=== PATIENT | female | born 1940 | race Caucasian/White ===

== ENCOUNTER 2016-07-01 07:32 | Day surgery (SDC) | payer OTHER ==
[2016-05-21 17:23] VITALS: BMI 29.7
[2016-07-01] MEDS: AK-DILATE 10% OPTH SOL OP PRN ×3 (08:10→08:20)
[2016-07-01] MEDS: CYCLOGYL 2% OPTH OP PRN ×3 (08:10→08:20)
[2016-07-01] MEDS: TETRACAINE 0.5% UNIT-DOSE OP PRN ×3 (08:10→08:40)
[2016-07-01] MEDS: OCUFEN 0.03% OPTH SOL OP PRN ×3 (08:10→08:40)
[2016-07-01] MEDS ORDERED: SUBLIMAZE ONE (09:00)
[2016-07-01] MEDS ORDERED: VERSED ONE (09:00)
[2016-07-01] MEDS ORDERED: DIPRIVAN 20 ML VIAL IVP ONE (09:00)
[2016-07-01] MEDS ORDERED: EPINEPHRINE 1:1,000 AMP IR ONE (09:15)
[2016-07-01] MEDS ORDERED: BETADINE OPTH PREP OP ONE (09:15)
[2016-07-01] MEDS ORDERED: LIDOCAINE 1 % AMP 2 ML (SUTURES) INJ ONE (09:18)
[2016-07-01] MEDS ORDERED: TIMOPTIC 0.5% OPTH OP ONE (09:39)
[2016-07-01] MEDS ORDERED: DIAMOX PO ONE (11:00)
[2016-07-01] MEDS ORDERED: DIAMOX ONE (11:00)
[2016-07-01 11:06] VITALS: BP 160/84; TEMP 96
--- NOTE | 2016-07-02 09:21 | OP ---
PREOPERATIVE DIAGNOSIS: ADVANCED SENILE CATARACT LEFT EYE, MIOTIC PUPIL COMBATIVE. POSTOPERATIVE DIAGNOSIS: SAME. OPERATION PHACOEMULSIFICATION ASPIRATION OF CATARACT LEFT EYE. PLACEMENT OF POSTERIOR CHAMBER LENS. PHACO TIME 1:20.9 SECONDS AT 7.0% POWER. LENS MODEL KEELY [id number]. DIOPTER +19.5D. TECHNIQUE: CLEAR CORNEA. ANESTHESIA: TOPICAL ANESTHESIA W/ANESTHESIA MONITORING. OPERATIVE REPORT: Topical anesthesia consisting of Tetracaine was applied to the cornea and Xylocaine Methyl Paraben free of MFP was injected intracamerally into the anterior chamber. The patient was then brought into the operating room , prepped and draped in the usual ophthalmic manner. A lid speculum was placed and the operating microscope was used. A paracentesis was made at the 3 o' clock position. A clear corneal incision was made just out to the limbus. The anterior chamber was entered just inside the clear cornea. Viscoelastic was injected into the anterior chamber. A capsulotomy was performed with a bent # 27 gauge needle. Phacoemulsification was then performed in the posterior chamber. After completion of the phacoemulsification, residual cortical material was aspirated with the irrigation-aspiration system. The posterior capsule was polished. Viscoelastic was injected into the anterior and posterior chambers to inflate the capsular bag. Lens were placed via an Unfolder system and stabilized in the bag. Viscoelastic was removed from the anterior chamber. The wound was checked for any leakage. The four sponges were removed from the fornix. Topical antibiotic steroid and nonsteroidal drops were also applied to the cornea. A Green shield was applied. The patient left the operating room in good condition without any complications. INTRAOPERATIVE MEDICATIONS: Xylocaine Methyl Paraben Free MPF MTDD
== END 2016-07-01 11:02 | disposition home or self-care (01) ==
LOC: SURG 07:32
PROVIDERS: ATTEND Ophthalmology
DX: H25.012 Cortical age-related cataract, left eye (principal); H57.03 Miosis

== ENCOUNTER 2016-08-05 07:39 | Day surgery (SDC) ==
[2016-05-21 17:23] VITALS: BMI 29.7
[2016-08-05] MEDS ORDERED: DIAMOX ONE (08:20)
[2016-08-05] MEDS ORDERED: LIDOCAINE 1% 20 ML MDV ID ONE (08:20)
[2016-08-05] MEDS ORDERED: LIDOCAINE 1% 20 ML MDV ONE (08:20)
[2016-08-05] MEDS ORDERED: AK-DILATE 10% OPTH SOL OP ONE ×3 (08:30→08:40)
[2016-08-05] MEDS ORDERED: CYCLOGYL 2% OPTH OP ONE ×3 (08:30→08:40)
[2016-08-05] MEDS ORDERED: TETRACAINE 0.5% OPTH SOL OP ONE ×2 (08:45→09:00)
[2016-08-05] MEDS ORDERED: OCUFEN 0.03% OPTH SOL OP ONE ×2 (08:45→09:00)
[2016-08-05] MEDS ORDERED: VERSED ONE (09:30)
[2016-08-05] MEDS ORDERED: BETADINE OPTH PREP OP ONE (09:35)
[2016-08-05] MEDS ORDERED: EPINEPHRINE 1:1,000 AMP IR ONE (09:35)
[2016-08-05] MEDS ORDERED: LIDOCAINE 1 % AMP 5 ML (SUTURES) INJ ONE (09:40)
[2016-08-05] MEDS ORDERED: OCUFLOX 0.3% OPTH SOL OP ONE (09:54)
[2016-08-05] MEDS ORDERED: TIMOPTIC 0.5% OPTH OP ONE (09:54)
[2016-08-05] MEDS ORDERED: DIAMOX PO ONE (10:30)
[2016-08-05 10:49] VITALS: BP 147/71; TEMP 97.5
--- NOTE | 2016-08-06 10:24 | OP ---
PREOPERATIVE DIAGNOSIS: BRUNESCENT NUCLEAR SCLEROTIC CATARACT, POSTERIOR SUBCAPSULAR CATARACT, RIGHT EYE. POSTOPERATIVE DIAGNOSIS: SAME. OPERATION PHACOEMULSIFICATION ASPIRATION OF CATARACT RIGHT EYE. PLACEMENT OF POSTERIOR CHAMBER LENS. PHACO TIME 41.5 SECONDS AT 8% POWER. LENS MODEL TECMACRINA [id number]. DIOPTER +20.0D. TECHNIQUE: CLEAR CORNEA. ANESTHESIA: TOPICAL ANESTHESIA W/ANESTHESIA MONITORING. OPERATIVE REPORT: Topical anesthesia consisting of Tetracaine was applied to the cornea and Xylocaine Methyl Paraben free of MFP was injected intracamerally into the anterior chamber. The patient was then brought into the operating room , prepped and draped in the usual ophthalmic manner. A lid speculum was placed and the operating microscope was used. A paracentesis was made at the 3 o' clock position. A clear corneal incision was made just out to the limbus. The anterior chamber was entered just inside the clear cornea. Viscoelastic was injected into the anterior chamber. A capsulotomy was performed with a bent # 27 gauge needle. Phacoemulsification was then performed in the posterior chamber. After completion of the phacoemulsification, residual cortical material was aspirated with the irrigation-aspiration system. The posterior capsule was polished. Viscoelastic was injected into the anterior and posterior chambers to inflate the capsular bag. Lens were placed via an Unfolder system and stabilized in the bag. Viscoelastic was removed from the anterior chamber. The wound was checked for any leakage. The four sponges were removed from the fornix. Topical antibiotic steroid and nonsteroidal drops were also applied to the cornea. A Green shield was applied. The patient left the operating room in good condition without any complications. INTRAOPERATIVE MEDICATIONS: Xylocaine Methyl Paraben Free MPF MTDD
== END 2016-08-05 11:00 | disposition home or self-care (01) ==
LOC: SURG 07:39
PROVIDERS: ATTEND Ophthalmology
DX: H25.11 Age-related nuclear cataract, right eye (principal); H25.041 Posterior subcapsular polar age-related cataract, right eye; E11.9 Type 2 diabetes mellitus without complications
CPT/HCPCS: 82962

== ENCOUNTER 2017-03-26 11:00 | Inpatient (IN) | payer OTHER ==
[2017-03-26 12:00] LABS: ABG PCO2 31.5 mmHg (35-45); ABG PH 7.434 (7.35-7.45)
[2017-03-26 12:01] LABS: ABG BASE EXCESS -3 (-2.0-2.0); ABG HCO3 21.1 (22.0-26.0); ABG TCO2 22 (22.0-28.0)
[2017-03-26 12:07] LABS: BASOPHILS % (AUTO) 0.3 % (0.0-3.0); HEMATOCRIT 44.7 % (37.0-47.0); IMMATURE GRANULOCYTE % (AUTO) 0.7 % (0.0-5.0); LYMPHOCYTES # (AUTO) 2.5 K/uL (0.60-3.4); LYMPHOCYTES % (AUTO) 18.4 (10.0-50.0); MEAN CORPUSCULAR HEMOGLOBIN 28.5 pg (27.0-31.0); MEAN CORPUSCULAR HGB CONC 33.6 (31.8-35.4); MONOCYTES # (AUTO) 0.4 K/uL (0.4-2.0); MONOCYTES % (AUTO) 2.9 (0-10); NEUTROPHILS # (AUTO) 10.6 K/ul (2.0-6.9); NEUTROPHILS % (AUTO) 77.7; PLATELET COUNT 147 10^3/uL (140-440); RED BLOOD COUNT 5.26 10^6/ul (4.20-5.40); WHITE BLOOD COUNT 13.57 K/ul (4.6-10.2)
[2017-03-26 12:44] LABS: ALBUMIN 3.4 g/dL (3.4-5.0); ALBUMIN/GLOBULIN RATIO 0.89; ANION GAP 18.3; BILIRUBIN,TOTAL 1.36 mg/dL (0.00-1.20); BUN/CREATININE RATIO 14.7; CALCIUM 9.9 mg/dL (8.2-10.2); CREATININE 1.36 mg/dL (0.60-1.30); POTASSIUM 4.3 mmol/L (3.5-5.10); TOTAL PROTEIN 7.2 g/dL (5.8-8.1); TROPONIN I 0.098 ng/ml (0.0000-0.4000)
--- NOTE | 2017-03-26 12:50 | CT ---
EXAM: CT of the chest without contrast History: Cough. Comparison: CT abdomen pelvis 03/26/2017, chest radiograph 05/18/2016, chest CT 10/13/2015 Technique: Planar CT images through the chest were obtained without the administration of IV contras t Findings: Heart remains mildly enlarged. Coronary calcifications. No pericardial effusion. 3.9 cm ectatic ascending aorta. No pathologically enlarged thoracic lymph nodes. Calcified granulomas aga in seen within the thorax. Scattered areas of subsegmental atelectasis. No consolidated pneumonia. No pleural fluid and no pne umothorax. No suspicious lung masses or lung nodules. For details in the upper abdomen, please see dedicated CT abdomen pelvis done on the same day. The l iver is fatty. No acute osseous abnormalities. Sternotomy wires. Impression: 1. No evidence for pneumonia. 2. Mild cardiomegaly and coronary artery disease. 3. Fatty liver.
--- NOTE | 2017-03-26 12:52 | CT ---
EXAM: CT scan of the head without contrast HISTORY: Pain TECHNIQUE: Imaging of the head was performed without contrast. 5 mm thin axial images and coronal a nd sagittal images were provided for interpretation. Comparison CT scan of the head dated 05/21/2016. FINDINGS: There is stable appearance of the right transfrontal ventriculostomy catheter. There is s table prominence of the lateral ventricles. There is stable prominence of the temporal horns and pro minence of the third ventricle. The hooker-white interface appears normal. No acute hemorrhages are s een. There is stable appearance of a small focus of low density and probable encephalomalacia seen a long the anterior right temporal lobe. There is no mass effect. Patchy low density changes are seen within the supratentorial white matter. The paranasal sinuses and mastoid air cells are clear. The calvarium and extracranial soft tissues are normal. IMPRESSION: Stable appearance of the right transfrontal ventriculostomy catheter. Stable ventriculomegaly. No acute intracranial abnormalities are seen. Mild chronic small vessel ischemic changes seen within the supratentorial white matter.
--- NOTE | 2017-03-26 12:52 | CT ---
EXAM: CT Abdomen without contrast. CT Pelvis without contrast. HISTORY: Abdominal pain. COMPARISON: 10/13/2015. TECHNIQUE: Multiple axial images of the abdomen and pelvis were obtained without intravenous contras t. Images were reformatted in the coronal plane. FINDINGS: Please note that evaluation of the abdominal and pelvic structures is limited due to lack of intravenous contrast. There has been previous sternotomy. Heart is enlarged. No acute abnormality identified in the lung bases. Degenerative changes present in the spine. The liver is diffusely low density consistent with fatty infiltration. Gallbladder appears contracte d. Pancreas, spleen, and adrenal glands demonstrate normal contour. Nonobstructing left renal calcu li are present. Grossly stable exophytic left renal lesion on axial image 34, not well characterized . Correlation with ultrasound is recommended as previously noted. No ureteral or bladder calculi ar e seen. The bowel is normal in course and caliber without evidence for obstruction or inflammatory process. The appendix is normal. Colonic diverticulosis noted. Small fat-containing umbilical hernia is pres ent. Ventriculoperitoneal shunt catheter enters the right anterior abdomen with the tip in the pelvi s. Uterus demonstrates normal contour. Urinary bladder is unremarkable. No free fluid or free air identified. Extensive atherosclerotic calcifications present. Left common iliac artery stent noted. Since prior study, there has been no significant interval change. IMPRESSION: No acute abnormality of the abdomen or pelvis.
[2017-03-26 12:53] LABS: CREATINE KINASE MB 2.2 ng/ml (0.0-3.6)
[2017-03-26 13:29] LABS: BILIRUBIN,URINE Negative (NEGATIVE); KETONES,URINE 1+ (NEGATIVE); LEUKOCYTE ESTERASE ,URINE 1+ (NEGATIVE); NITRITE,URINE Positive (NEGATIVE); PH,URINE 5.5 (5-9); PROTEIN,URINE 3+ (NEGATIVE); URINE, BLOOD 2+ (NEGATIVE)
[2017-03-26 13:30] LABS: ADD URINE MICROSCOPIC YES
[2017-03-26 13:31] LABS: BACTERIA,URINE 2+ (NOT PRESENT)
[2017-03-26] MEDS ORDERED: VANCOMYCIN 1 GM in SODIUM CHLORIDE 250 ML IV STA (13:53)
[2017-03-26] MEDS ORDERED: DUONEB NEB PRN (13:55)
[2017-03-26] MEDS ORDERED: HUMULIN R SUBCUT STA (13:57)
--- NOTE | 2017-03-26 14:00 | ED.PDOC ---
General ED Provider: Dr. GABRIELLA CONCEPCION Chief Complaint: Altered Mental Status Stated Complaint: altered Time Seen by Physician: 11:00 Mode of Arrival: Ambulance Information Source: [facility], EMT Exam Limitations: No limitations Primary Care Provider: JOE OLIVAS Nursing and Triage Documentation Reviewed and Agree: Yes (no head injury arrived orientated x 3) Neurological Complaint Exam - Altered Mental Status Complaint/Exam Current Mental Status: Agitation Last Known Well: today Onset: Gradual Duration: resolved Symptoms Are: Resolved Timing: Intermittent Initial Severity: Mild Current Severity: None Eye Deviation Present: No Character: Reports: Agitation Aggravating: Reports: None Alleviating: Reports: Spontaneous resolution Associated Signs and Symptoms: Denies: Dizziness, Weakness, Headache, Fever, Illness, Nuchal rigidity, Seizure, Nausea, Vomiting, Recently depressed, Trauma Cardiac Risk Factors: Reports: Hypertension, Elevated lipids CVA Risk Factors: Reports: Hypertension Related Surgical History: Reports: None Carotid Bruit Present: No Glascow Coma Scale (see protocol): 15 Nystagmus Present: No Gag Reflex Present: Yes Meningeal Signs Positive: No Focal Weakness: Present: None Focal Sensory Loss: Present: None Gait: Unable [id number]: Normal Findings Babinski Sign: Negative Right, Negative Left Signs of Injury: Present: Normal findings Differential Diagnoses: Hypoxia, Intracranial Bleed, Metabolic Disorder, Hypoglycemia, TIA Review of Systems - Review Of Systems Constitutional: Reports: Malaise Eyes: Reports: No symptoms Ears, Nose, Mouth, Throat: Reports: No symptoms Respiratory: Reports: No symptoms Cardiac: Reports: No symptoms GI: Reports: No symptoms : Reports: No symptoms Musculoskeletal: Reports: No symptoms Skin: Reports: No symptoms Neurological: Reports: Cognitive dysfunction Endocrine: Reports: No symptoms Hematologic/Lymphatic: Reports: No symptoms All Other Systems: Reviewed and Negative Past Medical History - Past Medical History Previously Healthy: No Endocrine: Reports: DM 2 Cardiovascular: Reports: Hypertension Respiratory: Reports: None Hematological: Reports: None Gastrointestinal: Reports: GERD Genitourinary: Reports: None Neuro/Psych: Reports: None Musculoskeletal: Reports: None Cancer: Reports: Unknown Last Menstrual Period: NONE - Surgical History General Surgical History: Reports: Other ([employer] shunt), Unknown - Family History Family History: Reports: Unknown - Social History Smoking Status: Never smoker Hx Substance Use: No Alcohol Screening: None Physical Exam - Physical Exam Appearance: Well-appearing, No pain distress, Well-nourished Eyes: MILTON, EOMI, Conjunctiva clear ENT: Ears normal, Nose normal, Dry mucosa Respiratory: Airway patent, Breath sounds clear, Breath sounds equal, Respirations nonlabored Cardiovascular: RRR, Pulses normal, No rub, No murmur GI/: Soft, Nontender, No masses, Bowel sounds normal, No Organomegaly Musculoskeletal: Normal strength, ROM intact, No edema, No calf tenderness Skin: Warm, Dry, Normal color Neurological: Sensation intact, Motor intact, Reflexes intact, Cranial nerves intact, Alert, Oriented Psychiatric: Affect appropriate, Mood appropriate Interpretation - Radiology Interpretation Radiology Interpretation By: Radiologist Radiology Results: No acute changes Physician Notification - Case Discussed Physician Notified: pmd Time of Notification: 14:01 Admit To: Inpatient Critical Care Note - Critical Care Note Total Time (mins): 0 Course - Course Hematology/Chemistry: 03/26/17 11:59 03/26/17 11:59 Orders, Labs, Meds: Lab Review 03/26/17 03/26/17 03/26/17 11:50 11:59 11:59 WBC 13.57 H RBC 5.26 Hgb 15.0 Hct 44.7 MCV 85.0 MCH 28.5 MCHC 33.6 RDW Coeff of Cogn 13.8 Plt Count 147 Immature Gran % (Auto) 0.7 Neut % (Auto) 77.7 Lymph % (Auto) 18.4 Carson % (Auto) 2.9 Eos % (Auto) 0.0 Baso % (Auto) 0.3 Immature Gran # (Auto) 0.1 Neut # 10.6 H Lymph # 2.5 Carson # 0.4 Eos # 0.0 Baso # 0.0 Puncture Site L rad O2 Saturation 92.0 L ABG pH 7.434 ABG pCO2 31.5 L ABG pO2 60.0 L ABG HCO3 21.1 L ABG Total CO2 22 ABG Base Excess -3 L Jaswinder Test + FiO2 % 21.0 Sodium 138 Potassium 4.3 Chloride 104 Carbon Dioxide 20 L Anion Gap 18.3 BUN 20 H Creatinine 1.36 H Estimated GFR (MDRD) 38.00 BUN/Creatinine Ratio 14.70 Glucose 328 H Lactic Acid Calcium 9.9 Total Bilirubin 1.36 H AST 39 H ALT 45 Alkaline Phosphatase 72 Total Creatine Kinase 180 CK-MB (CK-2) 2.2 CK-MB (CK-2) % 1.97937 Troponin I 0.0980 Total Protein 7.2 Albumin 3.4 Globulin 3.8 Albumin/Globulin Ratio 0.89 Procalcitonin Urine Color Urine Clarity Urine pH Ur Specific Franklin Urine Protein Urine Glucose (UA) Urine Ketones Urine Blood Urine Nitrite Urine Bilirubin Urine Urobilinogen Ur Leukocyte Esterase Urine Microscopic WBC Ur Squamous Epith Cells Urine Bacteria 03/26/17 03/26/17 03/26/17 11:59 11:59 13:25 WBC RBC Hgb Hct MCV MCH MCHC RDW Coeff of Cong Plt Count Immature Gran % (Auto) Neut % (Auto) Lymph % (Auto) Carson % (Auto) Eos % (Auto) Baso % (Auto) Immature Gran # (Auto) Neut # Lymph # Carson # Eos # Baso # Puncture Site O2 Saturation ABG pH ABG pCO2 ABG pO2 ABG HCO3 ABG Total CO2 ABG Base Excess Jaswinder Test FiO2 % Sodium Potassium Chloride Carbon Dioxide Anion Gap BUN Creatinine Estimated GFR (MDRD) BUN/Creatinine Ratio Glucose Lactic Acid 26.1 H Calcium Total Bilirubin AST ALT Alkaline Phosphatase Total Creatine Kinase CK-MB (CK-2) CK-MB (CK-2) % Troponin I Total Protein Albumin Globulin Albumin/Globulin Ratio Procalcitonin 0.37 Urine Color Yellow Urine Clarity Cloudy Urine pH 5.5 Ur Specific Franklin 1.020 Urine Protein 3+ Urine Glucose (UA) 3+ H Urine Ketones 1+ Urine Blood 2+ Urine Nitrite Positive Urine Bilirubin Negative Urine Urobilinogen 1.0 Ur Leukocyte Esterase 1+ Urine Microscopic WBC Tntc Ur Squamous Epith Cells Not present Urine Bacteria 2+ Orders Category Date Time Status ADMIT PATIENT INPATIENT .TO [facility] (MONITORED BED) ADMISSION 03/26/17 13: 50 Ordered ABG DRAW REQUEST Stat CARDIO 03/26/17 11:28 Completed EKG-(ED ONLY) Stat CARDIO 03/26/17 11:27 Completed EKG-(IP & OP ONLY) DAILY CARDIO 03/27/17 06:00 Ordered EKG-(IP & OP ONLY) DAILY CARDIO 03/28/17 06:00 Ordered EKG-(IP & OP ONLY) DAILY CARDIO 03/29/17 06:00 Ordered ACTIVITY .Complete BR CARE 03/26/17 13:50 Ordered BLOOD GLUCOSE MONITORING ACCUCHECK Q6H CARE 03/26/17 13:50 Ordered GIVE HS SNACK 2100 CARE 03/26/17 13:52 Ordered INTAKE & OUTPUT Q8HR CARE 03/26/17 13:50 Ordered Neuro Check [NEUROLOGICAL CHECKS] Q6HR CARE 03/26/17 13:57 Ordered TELEMETRY MONITORING TELE CARE 03/26/17 13:51 Ordered VITAL SIGNS Q8HR CARE 03/26/17 13:50 Ordered ADA 1800 ROSALIA. DIET DIETARY 03/26/17 Lunch Ordered HS SNACK DIETARY 03/26/17 Dinner Ordered ABG Stat LAB 03/26/17 11:50 Completed BLOOD CULTURE (ED ONLY) Stat LAB 03/26/17 11:59 Received CBC W/ AUTO DIFF DAILY@0600 LAB 03/27/17 06:00 Ordered CBC W/ AUTO DIFF DAILY@0600 LAB 03/28/17 06:00 Ordered CBC W/ AUTO DIFF DAILY@0600 LAB 03/29/17 06:00 Ordered CBC W/ AUTO DIFF DAILY@0600 LAB 03/30/17 06:00 Ordered CBC W/ AUTO DIFF DAILY@0600 LAB 03/31/17 06:00 Ordered CBC W/ AUTO DIFF DAILY@0600 LAB 04/01/17 06:00 Ordered CBC W/ AUTO DIFF DAILY@0600 LAB 04/02/17 06:00 Ordered CBC W/ AUTO DIFF DAILY@0600 LAB 04/03/17 06:00 Ordered CBC W/ AUTO DIFF DAILY@0600 LAB 04/04/17 06:00 Ordered CBC W/ AUTO DIFF DAILY@0600 LAB 04/05/17 06:00 Ordered CBC W/ AUTO DIFF DAILY@0600 LAB 04/06/17 06:00 Ordered CBC W/ AUTO DIFF DAILY@0600 LAB 04/07/17 06:00 Ordered CBC W/ AUTO DIFF DAILY@0600 LAB 04/08/17 06:00 Ordered CBC W/ AUTO DIFF DAILY@0600 LAB 04/09/17 06:00 Ordered CBC W/ AUTO DIFF DAILY@0600 LAB 04/10/17 06:00 Ordered CBC W/ AUTO DIFF DAILY@0600 LAB 04/11/17 06:00 Ordered CBC W/ AUTO DIFF DAILY@0600 LAB 04/12/17 06:00 Ordered CBC W/ AUTO DIFF DAILY@0600 LAB 04/13/17 06:00 Ordered CBC W/ AUTO DIFF DAILY@0600 LAB 04/14/17 06:00 Ordered CBC W/ AUTO DIFF DAILY@0600 LAB 04/15/17 06:00 Ordered CBC W/ AUTO DIFF Stat LAB 03/26/17 11:59 Completed COMPREHENSIVE METABOLIC PANEL DAILY@0600 LAB 03/27/17 06:00 Ordered COMPREHENSIVE METABOLIC PANEL DAILY@0600 LAB 03/28/17 06:00 Ordered COMPREHENSIVE METABOLIC PANEL DAILY@0600 LAB 03/29/17 06:00 Ordered COMPREHENSIVE METABOLIC PANEL DAILY@0600 LAB 03/30/17 06:00 Ordered COMPREHENSIVE METABOLIC PANEL DAILY@0600 LAB 03/31/17 06:00 Ordered COMPREHENSIVE METABOLIC PANEL DAILY@0600 LAB 04/01/17 06:00 Ordered COMPREHENSIVE METABOLIC PANEL DAILY@0600 LAB 04/02/17 06:00 Ordered COMPREHENSIVE METABOLIC PANEL DAILY@0600 LAB 04/03/17 06:00 Ordered COMPREHENSIVE METABOLIC PANEL DAILY@0600 LAB 04/04/17 06:00 Ordered COMPREHENSIVE METABOLIC PANEL DAILY@0600 LAB 04/05/17 06:00 Ordered COMPREHENSIVE METABOLIC PANEL DAILY@0600 LAB 04/06/17 06:00 Ordered COMPREHENSIVE METABOLIC PANEL DAILY@0600 LAB 04/07/17 06:00 Ordered COMPREHENSIVE METABOLIC PANEL DAILY@0600 LAB 04/08/17 06:00 Ordered COMPREHENSIVE METABOLIC PANEL DAILY@0600 LAB 04/09/17 06:00 Ordered COMPREHENSIVE METABOLIC PANEL DAILY@06 LAB 04/10/17 06:00 Ordered COMPREHENSIVE METABOLIC PANEL DAILY@0600 LAB 04/11/17 06:00 Ordered COMPREHENSIVE METABOLIC PANEL DAILY@0600 LAB 04/12/17 06:00 Ordered COMPREHENSIVE METABOLIC PANEL DAILY@0600 LAB 04/13/17 06:00 Ordered COMPREHENSIVE METABOLIC PANEL DAILY@0600 LAB 04/14/17 06:00 Ordered COMPREHENSIVE METABOLIC PANEL DAILY@0600 LAB 04/15/17 06:00 Ordered COMPREHENSIVE METABOLIC PANEL Stat LAB 03/26/17 11:59 Completed CREATINE KINASE Q8H LAB 03/26/17 20:00 Ordered CREATINE KINASE Q8H LAB 03/27/17 04:00 Ordered CREATINE KINASE Stat LAB 03/26/17 11:59 Completed LACTIC ACID Stat LAB 03/26/17 11:59 Completed PROCALCITONIN Stat LAB 03/26/17 11:59 Completed TROPONIN I Q8H LAB 03/26/17 20:00 Ordered TROPONIN I Q8H LAB 03/27/17 04:00 Ordered TROPONIN I Stat LAB 03/26/17 11:59 Completed UA [URINALYSIS C & S IF INDICATED] Stat LAB 03/26/17 13:25 Completed URINE CULTURE Stat LAB 03/26/17 13:25 Received Aspirin [Aspirin Chewable] MEDS 03/27/17 08:00 Ordered 81 mg PO DAILYWM Atorvastatin Calcium [Lipitor] MEDS 03/26/17 21:00 Ordered 40 mg PO BEDTIME Ceftriaxone Sodium [Rocephin] 1 gm MEDS 03/27/17 09:00 Ordered 0.9 % Sodium Chloride [Sodium Chloride] 50 ml IV DAILY Gabapentin [Neurontin] MEDS 03/26/17 21:00 Ordered 300 mg PO BID Insulin Regular, Human [Humulin R] MEDS 03/26/17 13:57 Stat See Protocol SUBCUT ONCE STA Ipratropium/Albuterol Neb [Duoneb] MEDS 03/26/17 13:55 Ordered 1 vial NEB RTQ6H PRN Isosorbide Mononitrate [Imdur] MEDS 03/27/17 09:00 Ordered 30 mg PO DAILY Lisinopril [Zestril] MEDS 03/27/17 09:00 Ordered 10 mg PO DAILY Sodium Chloride 0.9% [Sodium Chloride] 1,000 ml MEDS 03/26/17 14:00 Ordered IV 75 mls/hr Vancomycin HCl [Vancomycin] 1 gm MEDS 03/26/17 13:53 Ordered 0.9 % Sodium Chloride [Sodium Chloride] [address] ABDOMEN/PELVIS WO CONTRAST Stat RADS 03/26/17 11:[address] CHEST W/O CONTRAST Stat RADS 03/26/17 11:[address] HEAD W/O CONTRAST Stat RADS 03/26/17 11:29 Completed Medications Generic Name Dose Route Start Last Admin Trade Name Freq PRN Reason Stop Dose Admin Albuterol/Ipratropium 1 vial 03/26/17 13:55 Duoneb NEB RTQ6H PRN Bronchospasm Aspirin 81 mg 03/27/17 08:00 Aspirin Chewable PO DAILYWM SURAJ Gabapentin 300 mg 03/26/17 21:00 Neurontin PO BID SURAJ Ceftriaxone Sodium 1 gm/ 50 mls @ 75 mls/hr 03/27/17 09:00 Sodium Chloride IV DAILY SURAJ Sodium Chloride 1,000 mls @ 75 mls/hr 03/26/17 14:00 Sodium Chloride IV .[id number] SURAJ Vancomycin HCl 1 gm/ Sodium 250 mls @ 250 mls/hr 03/26/17 13:53 Chloride IV 03/26/17 14:52 ONCE STA Isosorbide Mononitrate 30 mg 03/27/17 09:00 Imdur PO DAILY [facility] Lisinopril 10 mg 03/27/17 09:00 Zestril PO DAILY [facility] Non-Formulary Medication 40 mg 03/26/17 21:00 Atorvastatin Calcium [Lipitor] PO BEDTIME SURAJ Discontinued Medications Generic Name Dose Route Start Last Admin Trade Name Freq PRN Reason Stop Dose Admin Insulin Human Regular 0 unit 03/26/17 13:57 Humulin R SUBCUT 03/26/17 13:58 ONCE STA Protocol Vital Signs: Temp Pulse Resp BP Pulse Ox 03/26/17 11:01 97.9 F 104 H 20 138/84 93 L Departure - Departure Time of Disposition: 14:01 (pmd saw pt in ED STATED TO ADMITT ) Disposition: ADMITTED INPATIENT Discharge Problem: Altered mental status, Altered mental state, Dehydration UTI (urinary tract infection) Qualifiers: Urinary tract infection type: site unspecified Instructions: Altered Mental Status (ED) Condition: Good Pt referred to PMD for follow-up: Yes Allergies/Adverse Reactions: Allergies Penicillins Adverse Reaction (Verified 03/26/17 11:20) Home Medications: Ambulatory Orders Acetaminophen 650 mg PO Q4H PRN 10/29/14 Acetaminophen [Tylenol] 325 mg PO Q6H PRN 10/29/14 Aspirin [Aspirin Chewable] 81 mg PO DAILYWM 10/29/14 Cetirizine HCl [Zyrtec] 10 mg PO DAILY 10/29/14 Gabapentin [Neurontin] 300 mg PO BID 10/29/14 Hydrocodone/Acetaminophen [Hydrocodon-Acetaminophen 5-325] 1 each PO TID Insulin Aspart [Novolog Insulin] 0 unit SUBCUT BID 10/29/14 Insulin Glargine,Hum.rec.anlog [Lantus] 42 unit SUBCUT BEDTIME 10/29/14 Isosorbide Mononitrate [Imdur] 30 mg PO DAILY 10/29/14 Lisinopril [Zestril] 10 mg PO DAILY 10/29/14 [place]-3 Fatty Acids/Fish Oil [Fish Oil 1,000 mg Softgel] 1 each PO TID 10/29/14 Omeprazole [Prilosec] 20 mg PO QDAC 10/29/14 Pentoxifylline [Trental] 400 mg PO BID 10/29/14 Ropinirole HCl [Requip] 1 mg PO BEDTIME 10/29/14 Metformin HCl [Metformin HCl ER] 500 mg PO BID 08/08/15 Atorvastatin Calcium [Lipitor] 40 mg PO BEDTIME 10/13/15 Magnesium Hydroxide [Milk of Magnesia] 30 ml PO DAILY PRN 05/21/16 Fenofibrate [Triglide] 160 mg PO DAILY 03/26/17 Ipratropium/Albuterol Neb [Duoneb] 1 vial NEB RTQ6H PRN 03/26/17 Sennosides/Docusate Sodium [Senna S Tablet] 1 each PO BID 03/26/17 Disposition Discussed With: Patient
[2017-03-26] MEDS: SODIUM CHLORIDE 1,000 ML IV SCH (16:50)
[2017-03-26] MEDS: HUMULIN R SUBCUT PRN ×2 (17:22→21:29)
[2017-03-26 19:13] VITALS: BMI 33.3
[2017-03-26 20:44] LABS: TROPONIN I 0.553 ng/ml (0.0000-0.4000)
[2017-03-26 20:45] LABS: CREATINE KINASE MB 2.7 ng/ml (0.0-3.6)
[2017-03-26] MEDS ORDERED: LIPITOR PO SCH (21:00)
[2017-03-26] MEDS ORDERED: NON-FORMULARY MEDICATION (Atorvastatin Calcium [Lipitor] 40 MG) PO SCH ×22 (21:00)
[2017-03-26] MEDS: NEURONTIN PO SCH (21:29)
[2017-03-27 05:16] LABS: BASOPHILS % (AUTO) 0.3 % (0.0-3.0); EOSINOPHILS % (AUTO) 0.1 % (0.0-7.0); HEMATOCRIT 38.7 % (37.0-47.0); HEMOGLOBIN 12.9 g/dl (12.0-16.0); IMMATURE GRANULOCYTE % (AUTO) 0.6 % (0.0-5.0); LYMPHOCYTES # (AUTO) 1.9 K/uL (0.60-3.4); LYMPHOCYTES % (AUTO) 15.2 (10.0-50.0); MEAN CORPUSCULAR HEMOGLOBIN 28.5 pg (27.0-31.0); MEAN CORPUSCULAR HGB CONC 33.3 (31.8-35.4); MEAN CORPUSCULAR VOLUME 85.6 fl (81.0-99.0); MONOCYTES % (AUTO) 7.8 (0-10); NEUTROPHILS # (AUTO) 9.6 K/ul (2.0-6.9); PLATELET COUNT 134 10^3/uL (140-440); RED BLOOD COUNT 4.52 10^6/ul (4.20-5.40); WHITE BLOOD COUNT 12.63 K/ul (4.6-10.2)
[2017-03-27 05:48] LABS: ALBUMIN 2.8 g/dL (3.4-5.0); ALBUMIN/GLOBULIN RATIO 0.76; ANION GAP 12.8; BILIRUBIN,TOTAL 0.74 mg/dL (0.00-1.20); BUN/CREATININE RATIO 14.28; CALCIUM 9.5 mg/dL (8.2-10.2); CREATININE 1.05 mg/dL (0.60-1.30); POTASSIUM 3.8 mmol/L (3.5-5.10); TOTAL PROTEIN 6.5 g/dL (5.8-8.1)
[2017-03-27] MEDS: SODIUM CHLORIDE 1,000 ML IV SCH ×2 (06:01→20:03)
[2017-03-27 06:02] LABS: TROPONIN I 0.495 ng/ml (0.0000-0.4000)
[2017-03-27 06:05] LABS: CREATINE KINASE MB 2.1 ng/ml (0.0-3.6)
[2017-03-27] MEDS: HUMULIN R SUBCUT PRN ×3 (06:35→20:48)
[2017-03-27] MEDS: NEURONTIN PO SCH ×2 (09:25→21:06)
[2017-03-27] MEDS: ASPIRIN CHEWABLE PO SCH (09:25)
[2017-03-27] MEDS: ROCEPHIN 1 GM in SODIUM CHLORIDE 50 ML IV SCH (09:25)
[2017-03-27] MEDS: IMDUR PO SCH (09:25)
[2017-03-27] MEDS: ZESTRIL PO SCH (09:26)
--- NOTE | 2017-03-27 10:36 | PCM.PROG ---
Attending Provider: ATTENDING PROVIDER: Dr. JOE OLIVAS This patient is seen with Nicole Cao, Nurse Practitioner. DATE OF SERVICE: 03/27/17 SUBJECTIVE: This 76 year old WHITE/ F was hospitalized 03/26/17. Lying in bed, resting comfortably. Per lab, both urine and blood cultures are positive for gram negative rods. The patient had fever last night of 100.6. Sensitivities are pending. REVIEW OF SYSTEMS: CONSTITUTIONAL: Positive for fatigue and fever. No night sweats. No chills. HEENT: Eyes: No visual changes. No eye pain. No eye discharge. ENT: No runny nose. No epistaxis. No sinus pain. No odynophagia. No congestion. RESPIRATORY: No cough, no congestion. No hemoptysis. No shortness of breath. CARDIOVASCULAR: No angina symptoms. No CHF symptoms. No atypical chest pain for CAD. No palpitations. No orthopnea.. GASTROINTESTINAL: No abdominal pain. No nausea or vomiting. No diarrhea or constipation. No hematemesis. No hematochezia. GENITOURINARY: No urgency. No frequency. No dysuria. No hematuria. No obstructive symptoms. No discharge. No pain. No significant abnormal bleeding. MUSCULOSKELETAL: No musculoskeletal pain; no joint swelling. NEUROLOGICAL: Awake, alert, oriented to time, place and person. No headache. No neck pain. No syncope. No seizures. No dizziness. PSYCHIATRIC: Not anxious. No depression. No suicidal thoughts. No homicidal thoughts. SKIN: No rash. No lesions. No wounds. ENDOCRINE: No unexplained weight loss. No weight gain. HEMATOLOGIC/LYMPHATIC: No anemia. No purpura. No petechiae. No prolonged or excessive bleeding. No palpable lymph nodes. PHYSICAL EXAMINATION: GENERAL: The patient is awake, alert and oriented, lying flat in bed in no distress. VITAL SIGNS: Temperature 98.4 F, Pulse 85, Respiratory Rate 20, BP 157/79, Pulse Ox 97% HEENT: Head normocephalic, atraumatic. Eyes: Extraocular muscles are intact. Pupils are equal, round and reactive to light and accommodation. Ears: No lesions. Nose appeared normal. Throat: No exudate or erythema. NECK: Supple. No JVD, no carotid bruit. No lymphadenopathy or thyromegaly. LUNGS: Decreased breath sounds bilaterally. Clear to auscultation. Percussion note normal. Chest symmetrical. HEART: S1, S2, no S3. No murmurs. No cyanosis or clubbing. No ascites. Pulses: Dorsalis pedis and posterior tibial pulses +1 to +2 both sides. ABDOMEN: Soft. Non-tender. Bowel sounds active. No CVA tenderness. No mass felt. EXTREMITIES: No edema. Full range of motion of all extremities, equal. NEUROLOGIC: No focal deficit. Cranial nerves II through XII are grossly intact. No headache, no double vision or headache. SKIN: Not dry. Intact. Turgor-normal. LYMPHATIC: No palpable lymph nodes/no lymphedema. MUSCULOSKELETAL: Normal joints with no swelling. Muscle tone is normal. LAB REVIEW: 03/27/17 04:00 03/27/17 04:00 03/27/17 04:00: Sodium 141, Potassium 3.8, Chloride 108 H, Carbon Dioxide 24, Anion Gap 12.8, BUN 15, Creatinine 1.05, Estimated GFR (MDRD) 51.00, BUN/ Creatinine Ratio 14.28, Glucose 193 H D, Calcium 9.5, Total Bilirubin 0.74, AST 24, ALT 37, Alkaline Phosphatase 60, Total Protein 6.5, Albumin 2.8 L, Globulin 3.7, Albumin/Globulin Ratio 0.76 03/27/17 04:00: WBC 12.63 H, RBC 4.52, Hgb 12.9, Hct 38.7 D, MCV 85.6, MCH 28.5 , MCHC 33.3, RDW Coeff of Cong 13.8, Plt Count 134 L, Immature Gran % (Auto) 0.6 , Neut % (Auto) 76.0, Lymph % (Auto) 15.2, [place] % (Auto) 7.8, Eos % (Auto) 0.1, Baso % (Auto) 0.3, Immature Gran # (Auto) 0.1, Neut # 9.6 H, Lymph # 1.9, [place] # 1.0, Eos # 0.0, Baso # 0.0 03/27/17 04:00: Total Creatine Kinase 150, CK-MB (CK-2) 2.1, CK-MB (CK-2) % 1.69203, Troponin I 0.4950 H 03/26/17 19:54: Total Creatine Kinase 177, CK-MB (CK-2) 2.7, CK-MB (CK-2) % 1.42459, Troponin I 0.5530 H* ASSESSMENT: 1. UTI -urosepsis blood culture positive with gram negative rods 2. Dehydration improved 3. Dementia 3. Diabetes mellitus Type 2 PLAN: 1. Restart Lantus 2. Restart Prilosec, Trental and Requip 3. Hold Meformen 4. D/C Lipitor 5. Culture and sensitivities pending. Plan and coordination of the patient's care discussed in the presence of Civil Rights Attorney and nurse. CONDITION: Stable SCRIBED BY: HOSSEIN MURPHY Single Stayer Operator scribed while in presence of service performed by Dr. Olivas/Nicole Cao APRN on 03/27/17 ([id number])
[2017-03-27] MEDS: TRENTAL PO SCH ×2 (11:15→21:06)
[2017-03-27] MEDS: LANTUS SUBCUT SCH (20:47)
[2017-03-27] MEDS: REQUIP PO SCH (21:06)
[2017-03-28 05:33] LABS: BASOPHILS % (AUTO) 0.5 % (0.0-3.0); EOSINOPHILS % (AUTO) 0.5 % (0.0-7.0); HEMATOCRIT 35.7 % (37.0-47.0); HEMOGLOBIN 11.9 g/dl (12.0-16.0); IMMATURE GRANULOCYTE % (AUTO) 0.5 % (0.0-5.0); LYMPHOCYTES # (AUTO) 2.4 K/uL (0.60-3.4); LYMPHOCYTES % (AUTO) 27.5 (10.0-50.0); MEAN CORPUSCULAR HEMOGLOBIN 28.1 pg (27.0-31.0); MEAN CORPUSCULAR HGB CONC 33.3 (31.8-35.4); MEAN CORPUSCULAR VOLUME 84.2 fl (81.0-99.0); MONOCYTES # (AUTO) 0.8 K/uL (0.4-2.0); NEUTROPHILS # (AUTO) 5.3 K/ul (2.0-6.9); PLATELET COUNT 130 10^3/uL (140-440); RED BLOOD COUNT 4.24 10^6/ul (4.20-5.40); WHITE BLOOD COUNT 8.57 K/ul (4.6-10.2)
[2017-03-28] MEDS: PRILOSEC PO SCH (05:40)
[2017-03-28 05:53] LABS: ALBUMIN 2.5 g/dL (3.4-5.0); ALBUMIN/GLOBULIN RATIO 0.71; ANION GAP 11.4; BILIRUBIN,TOTAL 0.53 mg/dL (0.00-1.20); BUN/CREATININE RATIO 13.63; CREATININE 0.88 mg/dL (0.60-1.30); POTASSIUM 3.4 mmol/L (3.5-5.10)
[2017-03-28] MEDS: IMDUR PO SCH (08:13)
[2017-03-28] MEDS: ASPIRIN CHEWABLE PO SCH (08:13)
[2017-03-28] MEDS: SODIUM CHLORIDE 1,000 ML IV SCH ×2 (08:13→09:37)
[2017-03-28] MEDS: ZESTRIL PO SCH (08:13)
[2017-03-28] MEDS: TRENTAL PO SCH ×2 (08:13→21:27)
[2017-03-28] MEDS: NEURONTIN PO SCH ×2 (08:13→21:27)
[2017-03-28] MEDS: K-DUR PO SCH (08:20)
[2017-03-28] MEDS: ROCEPHIN 1 GM in SODIUM CHLORIDE 50 ML IV SCH (08:20)
--- NOTE | 2017-03-28 10:04 | PCM.PROG ---
Attending Provider: ATTENDING PROVIDER: Dr. JOE OLIVAS This patient is seen with Nicole Cao, Nurse Practitioner. DATE OF SERVICE: 03/28/17 SUBJECTIVE: This 76 year old WHITE/ F was hospitalized 03/26/17. The patient is alert and sitting up in bed, eating well. Low grade fever last night. REVIEW OF SYSTEMS: CONSTITUTIONAL: No night sweats. No fatigue, malaise, lethargy. No fever or chills. Weakness. HEENT: Eyes: No visual changes. No eye pain. No eye discharge. ENT: No runny nose. No epistaxis. No sinus pain. No odynophagia. No congestion. RESPIRATORY: No cough, no congestion. No hemoptysis. No shortness of breath. CARDIOVASCULAR: No angina symptoms. No CHF symptoms. No atypical chest pain for CAD. No palpitations. No orthopnea.. GASTROINTESTINAL: No abdominal pain. No nausea or vomiting. No diarrhea or constipation. No hematemesis. No hematochezia. GENITOURINARY: No urgency. No frequency. No dysuria. No hematuria. No obstructive symptoms. No discharge. No pain. No significant abnormal bleeding. MUSCULOSKELETAL: No musculoskeletal pain; no joint swelling. NEUROLOGICAL: Awake, alert, oriented to time, place and person. No headache. No neck pain. No syncope. No seizures. No dizziness. PSYCHIATRIC: Not anxious. No depression. No suicidal thoughts. No homicidal thoughts. Confusion. SKIN: No rash. No lesions. No wounds. ENDOCRINE: No unexplained weight loss. No weight gain. HEMATOLOGIC/LYMPHATIC: No anemia. No purpura. No petechiae. No prolonged or excessive bleeding. No palpable lymph nodes. PHYSICAL EXAMINATION: GENERAL: The patient is awake, alert and oriented, lying/sitting in bed in no distress. VITAL SIGNS: Temperature 98.5 F, Pulse 67, Respiratory Rate 20, BP 140/80, Pulse Ox 94% HEENT: Head normocephalic, atraumatic. Eyes: Extraocular muscles are intact. Pupils are equal, round and reactive to light and accommodation. Ears: No lesions. Nose appeared normal. Throat: No exudate or erythema. NECK: Supple. No JVD, no carotid bruit. No lymphadenopathy or thyromegaly. LUNGS: Diminished breath sounds bilaterally. Clear to auscultation. Percussion note normal. Chest symmetrical. HEART: S1, S2, no S3. No murmurs. No cyanosis or clubbing. No ascites. Pulses: Dorsalis pedis and posterior tibial pulses +1 to +2 both sides. ABDOMEN: Soft. Non-tender. Bowel sounds active. No CVA tenderness. No mass felt. EXTREMITIES: No edema. Full range of motion of all extremities, equal. NEUROLOGIC: No focal deficit. Cranial nerves II through XII are grossly intact. No headache, no double vision or headache. Oriented to person only. SKIN: Not dry. Intact. Turgor-normal. LYMPHATIC: No palpable lymph nodes/no lymphedema. MUSCULOSKELETAL: Normal joints with no swelling. Muscle tone is normal. LAB REVIEW: 03/28/17 04:45 03/28/17 04:45 03/28/17 04:45: Sodium 140, Potassium 3.4 L, Chloride 109 H, Carbon Dioxide 23, Anion Gap 11.4, BUN 12, Creatinine 0.88, Estimated GFR (MDRD) 63.00, BUN/ Creatinine Ratio 13.63, Glucose 114, Calcium 9.0, Total Bilirubin 0.53, AST 43 H , ALT 44, Alkaline Phosphatase 72, Total Protein 6.0, Albumin 2.5 L, Globulin 3.5, Albumin/Globulin Ratio 0.71 03/28/17 04:45: WBC 8.57, RBC 4.24, Hgb 11.9 L, Hct 35.7 L, MCV 84.2, MCH 28.1, MCHC 33.3, RDW Coeff of Cong 13.5, Plt Count 130 L, Immature Gran % (Auto) 0.5, Neut % (Auto) 62.0, Lymph % (Auto) 27.5, [place] % (Auto) 9.0, Eos % (Auto) 0.5, Baso % (Auto) 0.5, Immature Gran # (Auto) 0.0, Neut # 5.3, Lymph # 2.4, [place] # 0.8, Eos # 0.0, Baso # 0.0 ASSESSMENT: Please see below. 1. Urinary tract infection. 2. Positive blood cultures gram negative and gram positive, Sensitivity pending. 3. Dehydration, improved 4. Dementia with behavioral disturbances. 5. Hypokalemia PLAN: 1. Potassium 20meq daily 2. Decreased IV fluids to 40cc an hour 3. Restart Metformin Plan and coordination of the patient's care discussed in the presence of Skate Shop Attendant and nurse. SCRIBED BY: ISATU BLACKWELL Electroplating Worker scribed while in presence of service performed by Dr. Olivas/Nicole Cao APRN on 03/28/17 ([id number])
[2017-03-28] MEDS: HUMULIN R SUBCUT PRN ×3 (12:40→21:26)
[2017-03-28] MEDS: GLUCOPHAGE PO SCH (18:01)
[2017-03-28] MEDS: LANTUS SUBCUT SCH (21:25)
[2017-03-28] MEDS: REQUIP PO SCH (21:26)
[2017-03-29 05:01] LABS: BASOPHILS % (AUTO) 0.5 % (0.0-3.0); EOSINOPHILS # (AUTO) 0.1 K/ul (0.0-0.7); EOSINOPHILS % (AUTO) 1.2 % (0.0-7.0); HEMATOCRIT 38.3 % (37.0-47.0); HEMOGLOBIN 12.9 g/dl (12.0-16.0); IMMATURE GRANULOCYTE % (AUTO) 0.7 % (0.0-5.0); LYMPHOCYTES # (AUTO) 2.6 K/uL (0.60-3.4); LYMPHOCYTES % (AUTO) 30.7 (10.0-50.0); MEAN CORPUSCULAR HEMOGLOBIN 28.2 pg (27.0-31.0); MEAN CORPUSCULAR HGB CONC 33.7 (31.8-35.4); MEAN CORPUSCULAR VOLUME 83.8 fl (81.0-99.0); MONOCYTES # (AUTO) 0.8 K/uL (0.4-2.0); MONOCYTES % (AUTO) 9.4 (0-10); NEUTROPHILS # (AUTO) 4.9 K/ul (2.0-6.9); NEUTROPHILS % (AUTO) 57.5; PLATELET COUNT 166 10^3/uL (140-440); RED BLOOD COUNT 4.57 10^6/ul (4.20-5.40); WHITE BLOOD COUNT 8.44 K/ul (4.6-10.2)
[2017-03-29 05:25] LABS: ALBUMIN 2.7 g/dL (3.4-5.0); ALBUMIN/GLOBULIN RATIO 0.63; ANION GAP 11.8; BILIRUBIN,TOTAL 0.38 mg/dL (0.00-1.20); BUN/CREATININE RATIO 12.37; CALCIUM 9.7 mg/dL (8.2-10.2); CREATININE 0.97 mg/dL (0.60-1.30); POTASSIUM 3.8 mmol/L (3.5-5.10)
[2017-03-29] MEDS: HUMULIN R SUBCUT PRN ×2 (06:28→11:23)
[2017-03-29] MEDS: PRILOSEC PO SCH (06:29)
[2017-03-29] MEDS: ROCEPHIN 1 GM in SODIUM CHLORIDE 50 ML IV SCH (08:29)
[2017-03-29] MEDS: GLUCOPHAGE PO SCH ×2 (08:29→17:20)
[2017-03-29] MEDS: ASPIRIN CHEWABLE PO SCH (08:29)
[2017-03-29] MEDS: SODIUM CHLORIDE 1,000 ML IV SCH (08:29)
[2017-03-29] MEDS: NEURONTIN PO SCH ×2 (08:30→20:32)
[2017-03-29] MEDS: ZESTRIL PO SCH (08:30)
[2017-03-29] MEDS: TRENTAL PO SCH ×2 (08:30→20:31)
[2017-03-29] MEDS: IMDUR PO SCH (08:30)
[2017-03-29] MEDS: K-DUR PO SCH (08:30)
[2017-03-29] MEDS ORDERED: LASIX IVP STA (12:15)
[2017-03-29] MEDS: REQUIP PO SCH (20:31)
[2017-03-29] MEDS: LANTUS SUBCUT SCH (20:32)
[2017-03-30] MEDS: PRILOSEC PO SCH (06:08)
[2017-03-30 06:28] LABS: BASOPHILS # (AUTO) 0.1 K/uL (0-0.2); BASOPHILS % (AUTO) 0.7 % (0.0-3.0); EOSINOPHILS # (AUTO) 0.1 K/ul (0.0-0.7); EOSINOPHILS % (AUTO) 1.6 % (0.0-7.0); HEMATOCRIT 38.2 % (37.0-47.0); HEMOGLOBIN 12.7 g/dl (12.0-16.0); IMMATURE GRANULOCYTE % (AUTO) 0.9 % (0.0-5.0); LYMPHOCYTES # (AUTO) 2.2 K/uL (0.60-3.4); MEAN CORPUSCULAR HGB CONC 33.2 (31.8-35.4); MEAN CORPUSCULAR VOLUME 84.3 fl (81.0-99.0); MONOCYTES # (AUTO) 0.6 K/uL (0.4-2.0); MONOCYTES % (AUTO) 8.9 (0-10); NEUTROPHILS # (AUTO) 3.8 K/ul (2.0-6.9); NEUTROPHILS % (AUTO) 55.9; PLATELET COUNT 168 10^3/uL (140-440); RED BLOOD COUNT 4.53 10^6/ul (4.20-5.40); WHITE BLOOD COUNT 6.85 K/ul (4.6-10.2)
[2017-03-30 06:46] LABS: ALBUMIN 2.5 g/dL (3.4-5.0); ALBUMIN/GLOBULIN RATIO 0.66; ANION GAP 10.7; BILIRUBIN,TOTAL 0.33 mg/dL (0.00-1.20); BUN/CREATININE RATIO 17.04; CALCIUM 9.6 mg/dL (8.2-10.2); CREATININE 0.88 mg/dL (0.60-1.30); POTASSIUM 3.7 mmol/L (3.5-5.10); TOTAL PROTEIN 6.3 g/dL (5.8-8.1)
[2017-03-30] MEDS: ROCEPHIN 1 GM in SODIUM CHLORIDE 50 ML IV SCH (08:52)
[2017-03-30] MEDS: GLUCOPHAGE PO SCH ×2 (08:52→16:59)
[2017-03-30] MEDS: ZESTRIL PO SCH (08:52)
[2017-03-30] MEDS: ASPIRIN CHEWABLE PO SCH (08:52)
[2017-03-30] MEDS: K-DUR PO SCH (08:52)
[2017-03-30] MEDS: IMDUR PO SCH (08:53)
[2017-03-30] MEDS: TRENTAL PO SCH ×2 (08:53→20:41)
[2017-03-30] MEDS: NEURONTIN PO SCH ×2 (08:53→20:41)
[2017-03-30] MEDS: SODIUM CHLORIDE 1,000 ML IV SCH (09:28)
[2017-03-30] MEDS: HUMULIN R SUBCUT PRN ×3 (11:33→20:41)
[2017-03-30] MEDS: REQUIP PO SCH (20:41)
[2017-03-30] MEDS: LANTUS SUBCUT SCH (20:42)
[2017-03-31 05:06] LABS: HEMATOCRIT 38.3 % (37.0-47.0); MEAN CORPUSCULAR HEMOGLOBIN 28.2 pg (27.0-31.0); MEAN CORPUSCULAR HGB CONC 33.9 (31.8-35.4); MEAN CORPUSCULAR VOLUME 83.1 fl (81.0-99.0); PLATELET COUNT 190 10^3/uL (140-440); RED BLOOD COUNT 4.61 10^6/ul (4.20-5.40)
[2017-03-31 05:16] LABS: ANISOCYTOSIS NOT PRESENT (NOT PRESENT)
[2017-03-31 05:34] LABS: ALBUMIN 2.6 g/dL (3.4-5.0); CALCIUM 9.5 mg/dL (8.2-10.2); POTASSIUM 3.7 mmol/L (3.5-5.10); TOTAL PROTEIN 6.5 g/dL (5.8-8.1)
[2017-03-31 05:35] LABS: ALBUMIN/GLOBULIN RATIO 0.67; ANION GAP 13.7; BILIRUBIN,TOTAL 0.3 mg/dL (0.00-1.20); BUN/CREATININE RATIO 14.63; CREATININE 0.82 mg/dL (0.60-1.30)
[2017-03-31] MEDS: PRILOSEC PO SCH (06:05)
[2017-03-31] MEDS: ZESTRIL PO SCH ×2 (09:01→22:17)
[2017-03-31] MEDS: ASPIRIN CHEWABLE PO SCH (09:01)
[2017-03-31] MEDS: K-DUR PO SCH (09:01)
[2017-03-31] MEDS: IMDUR PO SCH (09:01)
[2017-03-31] MEDS: GLUCOPHAGE PO SCH ×2 (09:01→16:56)
[2017-03-31] MEDS: ROCEPHIN 1 GM in SODIUM CHLORIDE 50 ML IV SCH (09:01)
[2017-03-31] MEDS: TRENTAL PO SCH ×2 (09:02→22:17)
[2017-03-31] MEDS: NEURONTIN PO SCH ×2 (09:02→22:17)
--- NOTE | 2017-03-31 11:31 | PCM.PROG ---
Attending Provider: ATTENDING PROVIDER: Dr. JOE OLIVAS This patient is seen with Nicole Cao, Nurse Practitioner. DATE OF SERVICE: 03/31/17 SUBJECTIVE: This 76 year old WHITE/ F was hospitalized 03/26/17. The patient is alert, lying in bed. She is oriented to person. She has been eating well. No fever. REVIEW OF SYSTEMS: CONSTITUTIONAL: No night sweats. No fatigue, malaise, lethargy. No fever or chills. HEENT: Eyes: No visual changes. No eye pain. No eye discharge. ENT: No runny nose. No epistaxis. No sinus pain. No odynophagia. No congestion. RESPIRATORY: No cough, no congestion. No hemoptysis. No shortness of breath. CARDIOVASCULAR: No angina symptoms. No CHF symptoms. No atypical chest pain for CAD. No palpitations. No orthopnea.. GASTROINTESTINAL: No abdominal pain. No nausea or vomiting. No diarrhea or constipation. No hematemesis. No hematochezia. GENITOURINARY: No urgency. No frequency. No dysuria. No hematuria. No obstructive symptoms. No discharge. No pain. No significant abnormal bleeding. MUSCULOSKELETAL: No musculoskeletal pain; no joint swelling. NEUROLOGICAL: Awake, alert, oriented to person, confused. No headache. No neck pain. No syncope. No seizures. No dizziness. PSYCHIATRIC: Not anxious. No depression. No suicidal thoughts. No homicidal thoughts. SKIN: No rash. No lesions. No wounds. ENDOCRINE: No unexplained weight loss. No weight gain. HEMATOLOGIC/LYMPHATIC: No anemia. No purpura. No petechiae. No prolonged or excessive bleeding. No palpable lymph nodes. PHYSICAL EXAMINATION: GENERAL: The patient is awake, alert, oriented to person. She is lying in bed in no distress. VITAL SIGNS: Temperature 97.7 F, Pulse 66, Respiratory Rate 18, BP 168/84, Pulse Ox 98% HEENT: Head normocephalic, atraumatic. Eyes: Extraocular muscles are intact. Pupils are equal, round and reactive to light and accommodation. Ears: No lesions. Nose appeared normal. Throat: No exudate or erythema. NECK: Supple. No JVD, no carotid bruit. No lymphadenopathy or thyromegaly. LUNGS: Diminished breath sounds. Clear to auscultation. Percussion note normal. Chest symmetrical. HEART: S1, S2, no S3. No murmurs. No cyanosis or clubbing. No ascites. Pulses: Dorsalis pedis and posterior tibial pulses +1 to +2 both sides. ABDOMEN: Soft. Non-tender. Bowel sounds active. No CVA tenderness. No mass felt. EXTREMITIES: No edema. Full range of motion of all extremities, equal. NEUROLOGIC: No focal deficit. Cranial nerves II through XII are grossly intact. No headache, no double vision or headache. SKIN: Not dry. Intact. Turgor-normal. LYMPHATIC: No palpable lymph nodes/no lymphedema. MUSCULOSKELETAL: Normal joints with no swelling. Muscle tone is normal. LAB REVIEW: 03/31/17 04:30 03/31/17 04:30 03/31/17 04:30: Sodium 143, Potassium 3.7, Chloride 110 H, Carbon Dioxide 23, Anion Gap 13.7, BUN 12, Creatinine 0.82, Estimated GFR (MDRD) 68.00, BUN/ Creatinine Ratio 14.63, Glucose 107, Calcium 9.5, Total Bilirubin 0.30, AST 20, ALT 37, Alkaline Phosphatase 72, Total Protein 6.5, Albumin 2.6 L, Globulin 3.9 , Albumin/Globulin Ratio 0.67 03/31/17 04:30: WBC 7.50, RBC 4.61, Hgb 13.0, Hct 38.3, MCV 83.1, MCH 28.2, MCHC 33.9, RDW Coeff of Cong 13.7, Plt Count 190, Neutrophils % (Manual) 46.0, Lymphocytes % (Manual) 45.0, Monocytes % (Manual) 2.0, Eosinophils % (Manual) 4.0, Reactive Lymphocytes 3.0, Anisocytosis Not present ASSESSMENT: 1. Urinary tract infection. 2. Positive blood cultures for E. coli sensitive to Rocephin 3. Dehydration, improved 4. Dementia with behavioral disturbances. 5. Hypokalemia resolved PLAN: 1. Continue IV Rocephin Plan and coordination of the patient's care discussed in the presence of Cnc Supervisor and nurse. CONDITION: Stable SCRIBED BY: HOSSEIN MURPHY Aircraft Ordnance Systems Mechanic scribed while in presence of service performed by Dr. Olivas/Nicole Cao APRN on 03/31/17 ([id number])
[2017-03-31] MEDS: HUMULIN R SUBCUT PRN ×3 (11:58→22:23)
--- NOTE | 2017-03-31 15:31 | PN ---
DATE OF SERVICE: 03/26/17 ADMIT NOTE REASON FOR HOSPITALIZATION: Altered mental status HISTORY OF PRESENT ILLNESS: 76 year old white female a resident of [facility] for many years was sent for altered mental status. The patient has no history of head injury. The patient is normally confused to time and place but mostly to the person. She is awake and alert at times. Change in the mental status for the past 24 to 48 hours. The patient's oral intake has been poor. The patient has ventriculoperitoneal shunt for hydrocephalus. MEDICAL HISTORY: TIA Hypertension Dyslipidemia Coronary artery disease PHYSICAL EXAMINATION: GENERAL: The patient is confused and disoriented and moving all extremities. VITAL SIGNS: Temperature 97.9, pulse 104, respiratory rate 20, blood pressure 130/84 and pulse ox 93%. HEENT: Head normocephalic, atraumatic. Eyes: Extraocular muscles are intact. Pupils are equal, round and reactive to light and accommodation. Ears: No lesions. Nose appeared normal. Throat: No exudate or erythema. NECK: Supple. No JVD, no carotid bruit. No lymphadenopathy or thyromegaly. LUNGS: Decreased breath sounds. Percussion note normal. Chest symmetrical. HEART: S1, S2, no S3. No murmurs. No cyanosis or clubbing. No ascites. Pulses: Dorsalis pedis and posterior tibial pulses +1 to +2 both sides. ABDOMEN: Soft. Nontender. Bowel sounds active. No CVA tenderness. No mass felt. EXTREMITIES: No edema. Full range of motion of all extremities, equal. NEUROLOGIC: No focal deficit. Cranial nerves II through XII are grossly intact. No headache, no double vision or headache. SKIN: Not dry. Intact. Turgor - normal. LYMPHATIC: No palpable lymph nodes/no lymphedema. MUSCULOSKELETAL: Normal joints with no swelling. Muscle tone is normal. LABS: Lactic acid 26 elevated. U/A was abnormal. Creatinine 1.3, BUN 20, ABG pO2 60, pCO2 31, pH 7.43, BUN 15, Glucose 328. ASSESSMENT: 1. Likely urinary tract infection 2. Dehydration 3. Dementia PLAN: 1. IV antibiotics 2. IV fluids 3. Rocephin as an antibiotics 4. Vancomycin CONDITION: Stable PROGNOSIS: Guarded TIME SPENT: More than 30 minutes. Plan and coordination of the patient's care discussed in the presence of nurse. PILLO
--- NOTE | 2017-03-31 15:34 | PN ---
DATE OF SERVICE: 03/28/17 SUBJECTIVE: The patient was hospitalized with dehydration, UTI and confusion. The patient's condition overall seems to have improved. Hydration status has improved and her potassium is borderline line. The patient has been on antibiotics, IV fluids and supportive measure. PHYSICAL EXAMINATION: VITALS: Afebrile with pulse of 67, respiratory rate 20, blood pressure 140/80. HEENT: Head normocephalic, atraumatic. Eyes: Extraocular muscles are intact. Pupils are equal, round and reactive to light and accommodation. Ears: No lesions. Nose appeared normal. Throat: No exudate or erythema. NECK: Supple. No JVD, no carotid bruit. No lymphadenopathy or thyromegaly. LUNGS: Decreased breath sounds but clear to auscultation. Percussion note normal. Chest symmetrical. HEART: S1, S2, no S3. No murmurs. No cyanosis or clubbing. No ascites. Pulses: Dorsalis pedis and posterior tibial pulses +1 to +2 both sides. ABDOMEN: Soft. Nontender. Bowel sounds active. No CVA tenderness. No mass felt. EXTREMITIES: No edema. Full range of motion of all extremities, equal. NEUROLOGIC: No focal deficit. Cranial nerves II through XII are grossly intact. No headache, no double vision or headache. SKIN: Not dry. Intact. Turgor - normal. LYMPHATIC: No palpable lymph nodes/no lymphedema. MUSCULOSKELETAL: Normal joints with no swelling. Muscle tone is normal. The patient was seen and examined with Nurse Practitioner. TIME SPENT: More than 30 minutes. Plan and coordination of the patient's care discussed in the presence of nurse. PILLO
--- NOTE | 2017-03-31 15:39 | PN ---
DATE OF SERVICE: 03/29/17 SUBJECTIVE: 76 year old white female hospitalized with UTI, Dehydration and altered mental status. The patient recognized that I was her doctor and also talks about her daughter who . The patient has been more confused since her daughter . She has dementia but it has worsened. Her appetite is not good. REVIEW OF SYSTEMS: CONSTITUTIONAL: No night sweats. No fatigue, malaise, lethargy. No fever or chills. HEENT: Eyes: No visual changes. No eye pain. No eye discharge. ENT: No runny nose. No epistaxis. No sinus pain. No sore throat. No odynophagia. No congestion. RESPIRATORY: No cough, no congestion. No hemoptysis. No shortness of breath. CARDIOVASCULAR: No angina symptoms. No CHF symptoms. No atypical chest pain for CAD. No palpitations. No orthopnea. GASTROINTESTINAL: No abdominal pain. No nausea or vomiting. No diarrhea or constipation. No hematemesis. No hematochezia. GENITOURINARY: No urgency. No frequency. No dysuria. No hematuria. No obstructive symptoms. No discharge. No pain. No significant abnormal bleeding. MUSCULOSKELETAL: No musculoskeletal pain; no joint swelling. NEUROLOGICAL: No headache. No neck pain. No syncope. No seizures. No dizziness. PSYCHIATRIC: Not anxious. No depression. No suicidal thoughts. No homicidal thoughts. SKIN: No rash. No lesions. No wounds. ENDOCRINE: No unexplained weight loss. No weight gain. HEMATOLOGIC/LYMPHATIC: No anemia. No purpura. No petechiae. No prolonged or excessive bleeding. No palpable lymph nodes. PHYSICAL EXAMINATION: GENERAL: The patient is confused but alert. VITAL SIGNS: Temperature 98.2, pulse 85, respiratory rate 24, blood pressure 170/88 and pulse ox 96%. HEENT: Head normocephalic, atraumatic. Eyes: Extraocular muscles are intact. Pupils are equal, round and reactive to light and accommodation. Ears: No lesions. Nose appeared normal. Throat: No exudate or erythema. NECK: Supple. No JVD, no carotid bruit. No lymphadenopathy or thyromegaly. LUNGS: Decreased breath sounds and clear to auscultation. Percussion note normal. Chest symmetrical. HEART: S1, S2, no S3. No murmurs. No cyanosis or clubbing. No ascites. Pulses: Dorsalis pedis and posterior tibial pulses +1 to +2 both sides. ABDOMEN: Soft. Nontender. Bowel sounds active. No CVA tenderness. No mass felt. EXTREMITIES: No edema. Full range of motion of all extremities, equal. NEUROLOGIC: No focal deficit. Cranial nerves II through XII are grossly intact. No headache, no double vision or headache. SKIN: Not dry. Intact. Turgor - normal. LYMPHATIC: No palpable lymph nodes/no lymphedema. MUSCULOSKELETAL: Normal joints with no swelling. Muscle tone is normal. ASSESSMENT: 1. UTI, controlled 2. Dehydration, controlled 3. Altered Mental status could be combination of a lot of factors but could be UTI triggering and on top of that she lost her daughter. PLAN: 1. The patient has mild swelling of the face and extremity. Will give IV Lasix 20mg 2. Will do TSH 3. Encouraged the patient to eat and she said that she would. TIME SPENT: More than 30 minutes. Plan and coordination of the patient's care discussed in the presence of nurse. PILLO
--- NOTE | 2017-03-31 15:43 | PN ---
DATE OF SERVICE: 03/30/17 SUBJECTIVE: 76 year old white female hospitalized with UTI, dehydration and altered mental status. The patient is feeling a lot better today and she is more alert. Following the person talked to me directly and she tried to remember my name but knew I had been her doctor for long time. REVIEW OF SYSTEMS: CONSTITUTIONAL: No night sweats. No fatigue, malaise, lethargy. No fever or chills. HEENT: Eyes: No visual changes. No eye pain. No eye discharge. ENT: No runny nose. No epistaxis. No sinus pain. No sore throat. No odynophagia. No congestion. RESPIRATORY: No cough, no congestion. No hemoptysis. No shortness of breath. CARDIOVASCULAR: No angina symptoms. No CHF symptoms. No atypical chest pain for CAD. No palpitations. No orthopnea. GASTROINTESTINAL: No abdominal pain. No nausea or vomiting. No diarrhea or constipation. No hematemesis. No hematochezia. GENITOURINARY: No urgency. No frequency. No dysuria. No hematuria. No obstructive symptoms. No discharge. No pain. No significant abnormal bleeding. MUSCULOSKELETAL: No musculoskeletal pain; no joint swelling. NEUROLOGICAL: No headache. No neck pain. No syncope. No seizures. No dizziness. PSYCHIATRIC: Not anxious. No depression. No suicidal thoughts. No homicidal thoughts. SKIN: No rash. No lesions. No wounds. ENDOCRINE: No unexplained weight loss. No weight gain. HEMATOLOGIC/LYMPHATIC: No anemia. No purpura. No petechiae. No prolonged or excessive bleeding. No palpable lymph nodes. PHYSICAL EXAMINATION: VITAL SIGNS: Temperature 97.3, pulse 76, respiratory rate 12, blood pressure 172/81 and pulse ox 97%. HEENT: Head normocephalic, atraumatic. Eyes: Extraocular muscles are intact. Pupils are equal, round and reactive to light and accommodation. Ears: No lesions. Nose appeared normal. Throat: No exudate or erythema. NECK: Supple. No JVD, no carotid bruit. No lymphadenopathy or thyromegaly. LUNGS: Decreased breath sounds but clear to auscultation. Percussion note normal. Chest symmetrical. HEART: S1, S2, no S3. No murmurs. No cyanosis or clubbing. No ascites. Pulses: Dorsalis pedis and posterior tibial pulses +1 to +2 both sides. ABDOMEN: Soft. Nontender. Bowel sounds active. No CVA tenderness. No mass felt. EXTREMITIES: No edema. Full range of motion of all extremities, equal. NEUROLOGIC: No focal deficit. Cranial nerves II through XII are grossly intact. No headache, no double vision or headache. SKIN: Not dry. Intact. Turgor - normal. LYMPHATIC: No palpable lymph nodes/no lymphedema. MUSCULOSKELETAL: Normal joints with no swelling. Muscle tone is normal. LABS: Hgb 12.7, hct 38, WBC 6,800 normal differential, creatinine 0.9, BUN 12, potassium 3.8 ASSESSMENT: 1. UTI seems to be under control 2. Dehydration, resolved 3. Altered Mental Status, the patient has dementia for number of years but the confusion seems to be under control now. Yesterday she was drowsy and draggy but today she is more alert. PLAN: 1. Continue Rocephin 2. IV fluids 3. The patient is on Zestril for blood pressure, will monitor it. CONDITION : Stable. TIME SPENT: More than 30 minutes. Plan and coordination of the patient's care discussed in the presence of nurse. PILLO
--- NOTE | 2017-03-31 15:51 | PN ---
DATE OF SERVICE: 03/31/17 SUBJECTIVE: 76 year old white female hospitalized with UTI, dehydration and altered mental status. The patient has urinary tract infection being treated with IV antibiotics. Her condition has steadily improved. Electrolytes today are normal with normal CBC of differential. The patient was seen and examined with Nurse Practitioner and Bullet Assembly Press Operator. PLAN: 1. Increase Zestril 20mg twice a day 2. Norvasc 5mg at night CONDITION: Stable TIME SPENT: More than 30 minutes. Plan and coordination of the patient's care discussed in the presence of nurse. PILLO
[2017-03-31] MEDS: SODIUM CHLORIDE 1,000 ML IV SCH (16:21)
[2017-03-31] MEDS: REQUIP PO SCH (22:17)
[2017-03-31] MEDS: NORVASC PO SCH (22:18)
[2017-03-31] MEDS: LANTUS SUBCUT SCH (22:22)
[2017-04-01 05:07] LABS: HEMATOCRIT 40.6 % (37.0-47.0); HEMOGLOBIN 13.4 g/dl (12.0-16.0); MEAN CORPUSCULAR HEMOGLOBIN 27.8 pg (27.0-31.0); MEAN CORPUSCULAR VOLUME 84.2 fl (81.0-99.0); PLATELET COUNT 221 10^3/uL (140-440); RED BLOOD COUNT 4.82 10^6/ul (4.20-5.40); WHITE BLOOD COUNT 8.86 K/ul (4.6-10.2)
[2017-04-01 05:16] LABS: ANISOCYTOSIS NOT PRESENT (NOT PRESENT)
[2017-04-01] MEDS: PRILOSEC PO SCH (05:31)
[2017-04-01 05:32] LABS: ALBUMIN 2.8 g/dL (3.4-5.0); ALBUMIN/GLOBULIN RATIO 0.68; BILIRUBIN,TOTAL 0.32 mg/dL (0.00-1.20); BUN/CREATININE RATIO 13.54; CALCIUM 10.6 mg/dL (8.2-10.2); CREATININE 0.96 mg/dL (0.60-1.30); TOTAL PROTEIN 6.9 g/dL (5.8-8.1)
[2017-04-01] MEDS: HUMULIN R SUBCUT PRN ×4 (06:15→21:57)
[2017-04-01] MEDS: GLUCOPHAGE PO SCH ×2 (08:58→17:24)
[2017-04-01] MEDS: ZESTRIL PO SCH ×2 (08:58→21:56)
[2017-04-01] MEDS: IMDUR PO SCH (08:58)
[2017-04-01] MEDS: ASPIRIN CHEWABLE PO SCH (08:58)
[2017-04-01] MEDS: ROCEPHIN 1 GM in SODIUM CHLORIDE 50 ML IV SCH (08:58)
[2017-04-01] MEDS: K-DUR PO SCH (08:59)
[2017-04-01] MEDS: TRENTAL PO SCH ×2 (08:59→21:56)
[2017-04-01] MEDS: NEURONTIN PO SCH ×2 (08:59→21:56)
--- NOTE | 2017-04-01 10:04 | PCM.PROG ---
Attending Provider: ATTENDING PROVIDER: Dr. JOE OLIVAS This patient is seen with Nicole Cao, Nurse Practitioner. DATE OF SERVICE: 04/01/17 SUBJECTIVE: This 76 year old WHITE/ F was hospitalized 03/26/17. The patient is alert, lying in bed. No fever. She has been eating well. REVIEW OF SYSTEMS: CONSTITUTIONAL: No night sweats. No fatigue, malaise, lethargy. No fever or chills. HEENT: Eyes: No visual changes. No eye pain. No eye discharge. ENT: No runny nose. No epistaxis. No sinus pain. No odynophagia. No congestion. RESPIRATORY: No cough, no congestion. No hemoptysis. No shortness of breath. CARDIOVASCULAR: No angina symptoms. No CHF symptoms. No atypical chest pain for CAD. No palpitations. No orthopnea.. GASTROINTESTINAL: No abdominal pain. No nausea or vomiting. No diarrhea or constipation. No hematemesis. No hematochezia. GENITOURINARY: No urgency. No frequency. No dysuria. No hematuria. No obstructive symptoms. No discharge. No pain. No significant abnormal bleeding. MUSCULOSKELETAL: No musculoskeletal pain; no joint swelling. NEUROLOGICAL: Awake, alert, oriented to person. No headache. No neck pain. No syncope. No seizures. No dizziness. PSYCHIATRIC: Not anxious. No depression. No suicidal thoughts. No homicidal thoughts. SKIN: No rash. No lesions. No wounds. ENDOCRINE: No unexplained weight loss. No weight gain. HEMATOLOGIC/LYMPHATIC: No anemia. No purpura. No petechiae. No prolonged or excessive bleeding. No palpable lymph nodes. PHYSICAL EXAMINATION: GENERAL: The patient is awake, alert and oriented to person, lying in bed in no distress. VITAL SIGNS: Temperature 97.8 F, Pulse 69, Respiratory Rate 16, BP 169/79, Pulse Ox 97% HEENT: Head normocephalic, atraumatic. Eyes: Extraocular muscles are intact. Pupils are equal, round and reactive to light and accommodation. Ears: No lesions. Nose appeared normal. Throat: No exudate or erythema. NECK: Supple. No JVD, no carotid bruit. No lymphadenopathy or thyromegaly. LUNGS: Diminished breath sounds bilaterally. Clear to auscultation. Percussion note normal. Chest symmetrical. HEART: S1, S2, no S3. No murmurs. No cyanosis or clubbing. No ascites. Pulses: Dorsalis pedis and posterior tibial pulses +1 to +2 both sides. ABDOMEN: Soft. Non-tender. Bowel sounds active. No CVA tenderness. No mass felt. EXTREMITIES: No edema. Full range of motion of all extremities, equal. NEUROLOGIC: No focal deficit. Cranial nerves II through XII are grossly intact. No headache, no double vision or headache. SKIN: Not dry. Intact. Turgor-normal. LYMPHATIC: No palpable lymph nodes/no lymphedema. MUSCULOSKELETAL: Normal joints with no swelling. Muscle tone is normal. LAB REVIEW: 04/01/17 05:04 04/01/17 05:04 04/01/17 05:04: Sodium 141, Potassium 4.0, Chloride 106, Carbon Dioxide 25, Anion Gap 14.0, BUN 13, Creatinine 0.96, Estimated GFR (MDRD) 57.00, BUN/ Creatinine Ratio 13.54, Glucose 158 H, Calcium 10.6 H, Total Bilirubin 0.32, AST 20, ALT 38, Alkaline Phosphatase 84, Total Protein 6.9, Albumin 2.8 L, Globulin 4.1, Albumin/Globulin Ratio 0.68 04/01/17 05:04: WBC 8.86, RBC 4.82, Hgb 13.4, Hct 40.6, MCV 84.2, MCH 27.8, MCHC 33.0, RDW Coeff of Cong 13.7, Plt Count 221, Neutrophils % (Manual) 58.0, Lymphocytes % (Manual) 37.0, Monocytes % (Manual) 2.0, Eosinophils % (Manual) 1.0, Reactive Lymphocytes 2.0, Anisocytosis Not present ASSESSMENT: 1. Urinary tract infection. 2. Positive blood cultures for E. coli sensitive to Rocephin 3. Dehydration, resolved 4. Dementia with behavioral disturbances. 5. Hypokalemia resolved PLAN: 1. Complete day 7 of antibiotics IV today 2. Will monitor blood pressure 3. Changes to meds last night 4. Anticipate d/c tomorrow Plan and coordination of the patient's care discussed in the presence of Activities Director Scouting and nurse. CONDITION: Stable SCRIBED BY: HOSSEIN MURPHY Chairman Of The Board scribed while in presence of service performed by Dr. Olivas/Nicole Cao APRN on 04/01/17 (0801)
--- NOTE | 2017-04-01 10:38 | HP ---
DATE OF SERVICE: 03/26/17 REASON FOR HOSPITALIZATION/HISTORY OF PRESENT ILLNESS: The patient is a resident of the long term. She was brought in after they stated she had acute confusion starting that day.She had started running a low grade fever at the long term and had not been eating as much. She does have a history of Alzheimer's Dementia but is not normally that confused. 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 REVIEW OF SYSTEMS: CONSTITUTIONAL: No night sweats. Malaise and weakness. No fever or chills. HEENT: Eyes: No visual changes. No eye pain. No eye discharge. ENT: No runny nose. No epistaxis. No sinus pain. No sore throat. No odynophagia. No ear pain. No congestion. RESPIRATORY: No cough, no congestion. No hemoptysis. No shortness of breath. CARDIOVASCULAR: No angina symptoms. No CHF symptoms. No atypical chest pain for CAD. No palpitations. No orthopnea. GASTROINTESTINAL: No abdominal pain. No nausea or vomiting. No diarrhea or constipation. No hematemesis. No hematochezia. Decreased appetite. GENITOURINARY: No urgency. No frequency. No dysuria. No hematuria. No obstructive symptoms. No discharge. No pain. No significant abnormal bleeding. MUSCULOSKELETAL: No musculoskeletal pain. No joint swelling. No arthritis. Weakness. NEUROLOGICAL: No headache. No neck pain. No syncope. No seizures. No dizziness. Confused which is new for her. PSYCHIATRIC: Not anxious. No depression. No suicidal thoughts. No homicidal thoughts. SKIN: No rash. No lesions. No wounds. ENDOCRINE: No unexplained weight loss. No weight gain. HEMATOLOGIC/LYMPHATIC: No anemia. No purpura. No petechiae. No prolonged or excessive bleeding. No palpable lymph nodes. PERSONAL/FAMILY/SOCIAL HISTORY: Family history is unknown. The patient is a resident of [facility]. She has never been a smoker and there is no alcohol or illicit drug use. MEDICATIONS: Requip 1mg PO bedtime Trental 400mg PO twice a day Prilosec 20mg PO QDAC Novolog Insulin 0 unit SUBCUT twice a day Zestril 10mg PO daily Imdur 30mg PO daily Lantus 42 units SUBCUT bedtime Hydrocodone-Acetaminophen 5-325 PO three times a day Neurontin 300mg Po twice a day Fish oil 1,000mg PO three times a day Zyrtec 10mg PO daily Aspirin chewable 81mg Po daily Acetaminophen 650mg PO Q 4 hours PRN Tylenol 325mg PO Q 6 hour PRN Metformin 500mg PO twice a day Lipitor 40mg Po bedtime Milk of magnesia 30ml PO daily PRN DUO NEBS 1 vial NEB RT Q 6 hours PRN Senna S one tablet PO twice a day Triglide 160mg PO daily ALLERGIES: Penicillins PHYSICAL EXAMINATION: GENERAL: The patient is ill appearing in no acute distress. She is well nourished. VITAL SIGNS: HEENT: Head normocephalic, atraumatic. Eyes: Extraocular muscles are intact. Pupils are equal, round and reactive to light and accommodation. Ears: No lesions. Nose appeared normal. Throat: No exudate or erythema. Moist mucosa membranes. NECK: Supple. No JVD, no carotid bruit. No lymphadenopathy or thyromegaly. LUNGS: Diminished breath sounds bilaterally equal and clear. No adventitious breath sounds. Percussion note normal. Chest symmetrical. HEART: S1, S2, no S3. No murmurs. No cyanosis or clubbing. No ascites. Pulses: Dorsalis pedis and posterior tibial pulses +1 to +2 both sides. No clicks or rubs. ABDOMEN: Soft. Nontender. Bowel sounds active times four quadrants. No hepatosplenomegaly. No distention. No CVA tenderness. No mass felt. EXTREMITIES: No edema. Full range of motion of all extremities, equal. NEUROLOGIC: No focal deficit. Cranial nerves II through XII are grossly intact. No headache, no double vision or headache. The patient is alert but not oriented to person, place or time. PSYCHIATRIC: The patient is agitated. SKIN: Dry. Clean. Intact. Turgor - normal. LYMPHATIC: No palpable lymph nodes/no lymphedema. MUSCULOSKELETAL: Normal joints with no swelling. Muscle tone is normal. Full range of motion. No calf swelling or tenderness. Negative Santy's sign. RADIOLOGIC INTERPRETATION: CT of the chest shows no evidence of pneumonia, mild cardiomegaly and coronary artery disease as well as fatty liver. CT of the head showed stable appearance of right transfrontal ventriculostomy catheter, stable ventriculomegaly, no acute intracranial abnormalities, Mild small vessel disease changes. CT of the abdomen showed no acute abnormality. LABS: ABG pH 7.434, pCO2 31.5, pO2 60, base excess of -3, bicarb 21.1, TCO2 22, O2 saturation 92%. Urine showed 2+ bacteria, positive leukocyte esterase, positive nitrites, 2+ blood, 1+ ketones, 3+ glucose, 3+ protein. Sodium 138, potassium 4.3, CO2 20, BUN 20, creatinine 1.36, glucose 328, total bilirubin 1.36, AST 39 , ALT 45, CK 180, CK-MB 2.2, total protein 7.2, Alkaline phosphatase 72, lactic acid 26.1, procalcitonin 0.37, WBC 13.57, hgb 15.0, hct 44.7, plt count 147. ASSESSMENT: 1. Fever 2. Acute change in mental status 3. Urinary tract infection 4. Dehydration 5. Diabetes Mellitus type 2 PLAN: 1. The patient will be admitted to the floor 2. Routine Telemetry orders 3. Normal saline at 75cc an hour 4. Rocephin 1 gram IV daily 5. Sliding scale 6. Insulin for coverage 7. Vancomycin 1 gram IV once 8. Blood cultures 9. Urine for culture and sensitivity 10.Oxygen PRN as needed 11.CBC and CMP daily Will follow closely. TIME SPENT: More than 70 minutes. MTDD
[2017-04-01] MEDS: SODIUM CHLORIDE 1,000 ML IV SCH (14:11)
[2017-04-01] MEDS: REQUIP PO SCH (21:56)
[2017-04-01] MEDS: NORVASC PO SCH (21:56)
[2017-04-01] MEDS: LANTUS SUBCUT SCH (21:57)
[2017-04-02 05:26] LABS: BASOPHILS # (AUTO) 0.1 K/uL (0-0.2); BASOPHILS % (AUTO) 0.9 % (0.0-3.0); EOSINOPHILS # (AUTO) 0.1 K/ul (0.0-0.7); EOSINOPHILS % (AUTO) 1.4 % (0.0-7.0); HEMATOCRIT 42.2 % (37.0-47.0); HEMOGLOBIN 13.8 g/dl (12.0-16.0); LYMPHOCYTES # (AUTO) 2.6 K/uL (0.60-3.4); LYMPHOCYTES % (AUTO) 30.1 (10.0-50.0); MEAN CORPUSCULAR HEMOGLOBIN 27.9 pg (27.0-31.0); MEAN CORPUSCULAR HGB CONC 32.7 (31.8-35.4); MEAN CORPUSCULAR VOLUME 85.3 fl (81.0-99.0); MONOCYTES # (AUTO) 0.8 K/uL (0.4-2.0); MONOCYTES % (AUTO) 8.8 (0-10); NEUTROPHILS # (AUTO) 4.8 K/ul (2.0-6.9); NEUTROPHILS % (AUTO) 56.8; PLATELET COUNT 223 10^3/uL (140-440); RED BLOOD COUNT 4.95 10^6/ul (4.20-5.40)
[2017-04-02 05:45] LABS: ALBUMIN 2.9 g/dL (3.4-5.0); ALBUMIN/GLOBULIN RATIO 0.69; ANION GAP 17.1; BILIRUBIN,TOTAL 0.31 mg/dL (0.00-1.20); BUN/CREATININE RATIO 12.63; CALCIUM 10.7 mg/dL (8.2-10.2); CREATININE 0.95 mg/dL (0.60-1.30); POTASSIUM 4.1 mmol/L (3.5-5.10); TOTAL PROTEIN 7.1 g/dL (5.8-8.1)
[2017-04-02] MEDS: PRILOSEC PO SCH (05:59)
[2017-04-02] MEDS ORDERED: ZESTRIL PO SCH (09:30)
[2017-04-02] MEDS: ROCEPHIN 1 GM in SODIUM CHLORIDE 50 ML IV SCH (09:41)
[2017-04-02] MEDS: TRENTAL PO SCH (09:43)
[2017-04-02] MEDS: ASPIRIN CHEWABLE PO SCH (09:43)
[2017-04-02 09:44] VITALS: TEMP 98
[2017-04-02] MEDS: IMDUR PO SCH (09:44)
[2017-04-02] MEDS: NEURONTIN PO SCH (09:44)
[2017-04-02] MEDS: GLUCOPHAGE PO SCH (09:44)
[2017-04-02] MEDS: K-DUR PO SCH (09:44)
[2017-04-02] MEDS: ZESTRIL PO SCH (09:46)
--- NOTE | 2017-04-02 10:55 | PN ---
DATE OF SERVICE: 04/01/17 SUBJECTIVE: 76 year old white female hospitalized with UTI, dehydration, altered mental status. The patient's mental status has improved and she is still confused. She has ventriculoperitoneal shunt with history of hydrocephalus also coronary artery disease. PHYSICAL EXAMINATION: VITALS: Blood pressure systolic 170. HEENT: Head normocephalic, atraumatic. Eyes: Extraocular muscles are intact. Pupils are equal, round and reactive to light and accommodation. Ears: No lesions. Nose appeared normal. Throat: No exudate or erythema. NECK: Supple. No JVD, no carotid bruit. No lymphadenopathy or thyromegaly. LUNGS: Clear to auscultation. Percussion note normal. Chest symmetrical. HEART: S1, S2, no S3. No murmurs. No cyanosis or clubbing. No ascites. Pulses: Dorsalis pedis and posterior tibial pulses +1 to +2 both sides. ABDOMEN: Soft. Nontender. Bowel sounds active. No CVA tenderness. No mass felt. EXTREMITIES: No edema. Full range of motion of all extremities, equal. NEUROLOGIC: No focal deficit. Cranial nerves II through XII are grossly intact. No headache, no double vision or headache. SKIN: Not dry. Intact. Turgor - normal. LYMPHATIC: No palpable lymph nodes/no lymphedema. MUSCULOSKELETAL: Normal joints with no swelling. Muscle tone is normal. LABS: Practically normal ASSESSMENT: 1. UTI is under control PLAN: 1. Will monitor the blood pressure 2. Continue antibiotics Rocephin 3. Continue Telemetry CONDITION: Stable The patient was seen and examined with Nurse Practitioner and Glaze Carrier. TIME SPENT: More than 30 minutes. Plan and coordination of the patient's care discussed in the presence of nurse. PILLO
[2017-04-02] MEDS: HUMULIN R SUBCUT PRN (11:22)
--- NOTE | 2017-04-02 12:22 | CM.DICTOOL ---
ADMISSION: 03/26/17 14:10 DISCHARGE: April 02, 2017 DATE OF SERVICE: 04/02/17 FINAL DIAGNOSIS UTI, e-coli organism Positive blood culture, e-coli Dehydration Hypertension Diabetes Mellitus,type 2 Dyslipidemia Osteoarthritis Coronary Artery Disease GERD RLS COPD Alzheimer's Dementia Obstructive Hydrocephalus with ENHANCED ENVIRONMENTAL OPERATOR shunt CABG LAST VITALS Temp Pulse Resp BP Pulse Ox 98 F 69 20 161/82 H 99 04/02/17 09:44 04/02/17 09:44 04/02/17 09:44 04/02/17 09:44 04/02/17 09:44 ACTIVE HOME MEDICATIONS Albuterol/Ipratropium (Duoneb) 1 vial NEB RTQ6H PRN PRN Reason: Bronchospasm Aspirin (Aspirin Chewable) 81 mg PO DAILYWM [facility] Last Admin: 04/02/17 09:43 Dose: 81 mg Gabapentin (Neurontin) 300 mg PO BID [facility] Last Admin: 04/02/17 09:44 Dose: 300 mg Insulin Glargine (Lantus) 42 unit SUBCUT BEDTIME [facility] Last Admin: 04/01/17 21:57 Dose: 42 unit Insulin Aspart (Novolog Insulin) per sliding scale BID Last Admin: Isosorbide Mononitrate (Imdur) 30 mg PO DAILY [facility] Last Admin: 04/02/17 09:44 Dose: 30 mg Lisinopril (Zestril) 40 mg PO BID [facility] Dose Increase Last Admin: 04/02/17 09:44 Dose: 40 mg Metformin HCl (Glucophage) 500 mg PO BIDWM [facility] Last Admin: 04/02/17 09:44 Dose: 500 mg Omeprazole (Prilosec) 20 mg PO QDAC [facility] Last Admin: 04/02/17 05:59 Dose: 20 mg Pentoxifylline (Trental) 400 mg PO BID [facility] Last Admin: 04/02/17 09:43 Dose: 400 mg Ropinirole HCl (Requip) 1 mg PO BEDTIME [facility] Last Admin: 04/01/17 21:56 Dose: 1 mg Acetaminophen 650 mg PO every 4 hours prn Last Admin: Cetirizine HCL (zyrtec) 10 mg Daily Last Admin: [place] -3 Fatty Acids/Fish Oil 1000 mg TID Last Admin: Atorvastatin Calciuim (Lipitor) 40 mg PO Bedtime Last Admin: Fenofibrate (Triglide) 160 mg daily Last Admin: Sennosides/Docusate Sodium (Senna S Tablet) 1 BID Last Admin: Hydrocodone/Acetaminophen 5-325 mg TID Last Admin: ALLERGIES Penicillins Adverse Reaction (Verified 03/26/17 11:20) NEW PRESCRIPTIONS: Ceftin 250 mg BID for 5 days Lisinopril 40 mg BID (dose increased) Amlodipine 5 mg at bedtime daily SMOKING: Not Applicable DISEASE SPECIFIC EDUCATION: Not Applicable due to patient confusion LAB REVIEW: 04/02/17 05:24 04/02/17 05:24 04/02/17 05:24: Sodium 142, Potassium 4.1, Chloride 105, Carbon Dioxide 24, Anion Gap 17.1, BUN 12, Creatinine 0.95, Estimated GFR (MDRD) 57.00, BUN/ Creatinine Ratio 12.63, Glucose 111, Calcium 10.7 H, Total Bilirubin 0.31, AST 20, ALT 32, Alkaline Phosphatase 77, Total Protein 7.1, Albumin 2.9 L, Globulin 4.2, Albumin/Globulin Ratio 0.69 04/02/17 05:24: WBC 8.50, RBC 4.95, Hgb 13.8, Hct 42.2, MCV 85.3, MCH 27.9, MCHC 32.7, RDW Coeff of Cong 13.8, Plt Count 223, Immature Gran % (Auto) 2.0, Neut % (Auto) 56.8, Lymph % (Auto) 30.1, Izard % (Auto) 8.8, Eos % (Auto) 1.4, Baso % (Auto) 0.9, Immature Gran # (Auto) 0.2, Neut # 4.8, Lymph # 2.6, Izard # 0.8, Eos # 0.1, Baso # 0.1 PLAN: Discharge to [facility] Diet: Consistent Carbohydrates, Mechanical Soft, no added salt. Regular Liquids. Activity: Up to dining room for meals. Ambulate as tolerated. CBC, CMP in 2 weeks, then every 3 months Lipids, A1C every 6 months VS daily for 1 week Oxygen at 2 liters prn saturation below 90% Accu-checks BID, Insulin coverage as needed per sliding scale Incontinent Care prn Decubitus precautions Dr. Daugherty/Nicole Cao, MOTOR GRADER OPERATOR to see patient in 7-10 days Ms. Reddy is alert to person. She is disoriented to time and place. She is cooperative with care and follows instructions. Her speech is clear, repetitive at times. She transfers from the bed to the chair with minimal assistance of one staff member. She is incontinent of bladder and bowel. She requires assistance with bathing, but feeds herself without difficulty. Meal intakes have been good at 50-100%. Skin is intact and free of irritation or open areas. Juan Pablo Daugherty MD
[2017-04-02 15:01] VITALS: BP 139/73
--- NOTE | 2017-04-03 11:07 | ECHO2D ---
Date of Exam: 04/02/17 Ordering Physician: JOE OLIVAS Room #: 110 Reason for Echo: HYPERTENSION, CAD M-Mode Normal Adult Results LV Dimensions Normal Adult Results AoV Opening excursions >1.6 >1.6 LVEDD-base- 3.5-5.8 4.0 Ao root dimensions 2.0-3.7 3.9 LVESD-base- 3.1-4.6 L. Atrium dimensions 1.9-3.8 4.3 Post. Wall thickness 0.8-1.1 1.1 IV septum (thickness) 0.7-1.2 1.2 Post. Wall excursion 0.72-1.3 NORMAL Septal motion 0.5 Systolic motion R. Ventricular cavity 1.5-2.0 NORMAL LVEF 60% 40 TO 45% Paradoxical septal wall motion NORMAL 2-D : CALCIFIC MITRAL VALVE ANNULUS--NO EFFUSION, NO THROMBUS--ENLARGED LEFT ATRIAL CAVITY--NORMAL VALVES M-MODE: MV: CALCIFIC MITRAL VALVE ANNULUS AV: NORMAL TV: NORMAL PV: CHAMBER SIZE: ENLARGED LEFT ATRIAL CAVITY WALL MOTION: HYPOKINETIC SEPTUM PERICARDIUM: NORMAL INTERPRETATION: 1. LEFT VENTRICLE HYPERTROPHY WITH ENLARGED LEFT ATRIAL CAVITY 2. CALCIFIC MITRAL VALVE ANNULUS 3. HYPOKINETIC SEPTUM EJECTION FRACTION 40 TO 45% MTDD
--- NOTE | 2017-04-08 11:04 | PN ---
DATE OF SERVICE: 04/02/17 - DISCHARGE NOTE SUBJECTIVE: 76-year-old white female hospitalized with UTI, dehydration and altered mental status. The patient was treated with IV antibiotics, Rocephin. The patient had E. coli in the blood also with septicemia and grew also from urine. The patient' s condition has improved remarkably. She is talking to me plainly. She doesn't know who I am, she forgets about it. She repeats the same things that I would say to her. In any case, not drowsy like what she was before. REVIEW OF SYSTEMS: CONSTITUTIONAL: No night sweats. No fatigue, malaise, lethargy. No fever or chills. HEENT: Eyes: No visual changes. No eye pain. No eye discharge. ENT: No runny nose. No epistaxis. No sinus pain. No sore throat. No odynophagia. No congestion. RESPIRATORY: No cough, no congestion. No hemoptysis. No shortness of breath.No PND. CARDIOVASCULAR: No angina symptoms. No CHF symptoms. No atypical chest pain for CAD. No palpitations. No orthopnea. GASTROINTESTINAL: No abdominal pain. No nausea or vomiting. No diarrhea or constipation. No hematemesis. No hematochezia. GENITOURINARY: No urgency. No frequency. No dysuria. No hematuria. No obstructive symptoms. No discharge. No pain. No significant abnormal bleeding. MUSCULOSKELETAL: No musculoskeletal pain; no joint swelling. NEUROLOGICAL: No headache. No neck pain. No syncope. No seizures. No dizziness. PSYCHIATRIC: Not anxious. No depression. No suicidal thoughts. No homicidal thoughts. SKIN: No rash. No lesions. No wounds. ENDOCRINE: No unexplained weight loss. No weight gain. HEMATOLOGIC/LYMPHATIC: No anemia. No purpura. No petechiae. No prolonged or excessive bleeding. No palpable lymph nodes. PHYSICAL EXAMINATION: GENERAL: The patient is confused but alert. VITAL SIGNS: Temperature 97, pulse 55, respiratory rate 16, BP 160/70, pulse ox 96%. HEENT: Head normocephalic, atraumatic. Eyes: Extraocular muscles are intact. Pupils are equal, round and reactive to light and accommodation. Ears: No lesions. Nose appeared normal. Throat: No exudate or erythema. NECK: Supple. No JVD, no carotid bruit. No lymphadenopathy or thyromegaly. LUNGS: Decreased breath sounds but clear to auscultation. Percussion note normal. Chest symmetrical. HEART: S1, S2, no S3. No murmurs. No cyanosis or clubbing. No ascites. Pulses: Dorsalis pedis and posterior tibial pulses +1 to +2 both sides. ABDOMEN: Soft. Nontender. Bowel sounds active. No CVA tenderness. No mass felt. EXTREMITIES: No edema. Full range of motion of all extremities, equal. NEUROLOGIC: No focal deficit. Cranial nerves II through XII are grossly intact. No headache, no double vision or headache. SKIN: Not dry. Intact. Turgor - normal. LYMPHATIC: No palpable lymph nodes/no lymphedema. MUSCULOSKELETAL: Normal joints with no swelling. Muscle tone is normal. LABS: Hemoglobin 13.8, hematocrit 42, WBC 8,500, normal differential. Creatinine 0.9, BUN 12, potassium 4.1, glucose 111. ASSESSMENT: 1. UTI WITH E.COLI SEPTICEMIA SEEMS TO BE RESOLVING. 2. HYPERTENSION. 3. CORONARY ARTERY BYPASS SURGERY 4. DEMENTIA PLAN: 1. The patient had an echocardiogram done which showed ejection fraction around 43%, LVH, enlarged LA cavity. The patient's septum is hypokinetic. The patient's valves have no evidence of bacterial endocarditis. 2. The patient will be discharged home. 3. Zestril will be increased to 40 mg twice a day. 4. The patient is going to be on Ceftin 250 mg twice a day for five days. CONDITION AT TIME OF DISCHARGE: Stable. TIME SPENT: More than 30 minutes. Plan and coordination of the patient's care discussed in the presence of nurse. PILLO
--- NOTE | 2017-04-08 13:03 | DS ---
DATE OF SERVICE: 04/02/17 FINAL DIAGNOSIS: 1. UTI, E-COLI ORGANISM 2. POSITIVE BLOOD CULTURE, E-COLI 3. DEHYDRATION 4. HYPERTENSION 5. DIABETES MELLITUS, TYPE 2 6. DYSLIPIDEMIA 7. OSTEOARTHRITIS 8. CORONARY ARTERY DISEASE 9. GERD 10. RESTLESS LEG SYNDROME 11. COPD 12. ALZHEIMER'S DEMENTIA 13. OBSTRUCTIVE HYDROCEPHALUS WITH SMELTER OPERATOR SHUNT 14. CABG DISCHARGE INSTRUCTIONS: 1. Followup appointment: Dr. Daugherty/Nicole Cao APRN to see patient in 7 to 10 days. 2. CBC, CMP in 2 weeks then every 3 months 3. Lipids, A1C every 6 months 4. V/S daily for one week 5. Oxygen at 2L p.r.n. saturation below 90% 6. Accu-Cheks b.i.d. insulin coverage as needed per sliding scale 7. Incontinent care p.r.n. 8. Decubitus precautions MEDICATIONS AT DISCHARGE: Albuterol/Ipratropium (Duoneb) one vial Neb Rt q.6h p.r.n. Aspirin 81 mg p.o. daily with meal [facility] Gabapentin 300 mg p.o. b.i.d. [facility] Insulin (Lantus) 42 unit Subcut bedtime [facility] Insulin (Novolog) b.i.d. per sliding scale Isosorbide (Imdur) 30 mg p.o. daily SURAJ Lisinopril (Zestril) 40 mg p.o. b.i.d. SURAJ dose increase Metformin (Glucophage) 500 mg p.o. b.i.d. with meal [facility] Omeprazole (Prilosec) 20 mg p.o. q.d a.c. SURAJ Pentoxifylline (Trental) 400 mg p.o. b.i.d. [facility]AJ Ropinirole (Requip) 1 mg p.o. bedtime [facility] Acetaminophen 650 mg p.o. every 4 hours p.r.n. Cetirizine (Zyrtec) 10 mg daily [place]-3 Fatty Acid/Fish Oil 1000 mg t.i.d. Atorvastatin (Lipitor) 40 mg p.o. bedtime Fenofibrate (Triglide) 160 mg daily Sennosides/Docusate Sodium (Senna S) one b.i.d. Hydrocodone/Acetaminophen 5-325 mg t.i.d. NEW PRESCRIPTIONS: Ceftin 250 mg b.i.d. for 5 days Lisinopril 40 mg b.i.d. (dose increased) Amlodipine 5 mg at bedtime daily DIET INSTRUCTIONS: Consistent Carbohydrates, mechanical soft, no added salt, regular liquids. ACTIVITY: Up to dining room for meals, ambulate as tolerated. SMOKING: N/A DISEASE SPECIFIC EDUCATION: Not applicable due to patient confusion. HOSPITAL COURSE: 76-year-old white female hospitalized with change in mental status. On further investigation, the patient had UTI and was treated with Rocephin. The patient grew E. coli in the blood culture as in urine culture. She was kept on Rocephin for 7 days. On discharge, she was put on Ceftin 250 mg twice a day for 5 days. The patient during the stay in the hospital had improved mental status with alertness. She was asking questions, taking part in the conversation even though sometimes it didn't make any sense but the patient wasn't drowsy like what she was noted on admission. The patient's blood pressure was supposedly high, some medication changes were made. On discharge she was on 40 mg twice a day of Zestril. Norvasc dose and frequency was also increased. CONDITION AT TIME OF DISCHARGE: Stable. TIME SPENT: More than 60 minutes. MTDD
--- NOTE | 2017-04-08 13:05 | PN ---
CODING FOR BILLING 03/26/17 LEVEL 5 03/27/17 INTERMEDIATE 03/28/17 INTERMEDIATE 03/29/17 INTERMEDIATE 03/30/17 INTERMEDIATE 03/31/17 INTERMEDIATE 04/01/17 BRIEF 04/02/17 DISCHARGE MTDD
== END 2017-04-02 15:45 | disposition home or self-care (01) | DRG 948 ==
LOC: ED 11:00 → MEDSURG A 14:10
PROVIDERS: ADMIT Internal Medicine; ATTEND Internal Medicine
DX: R41.82 Altered mental status, unspecified (principal); N39.0 Urinary tract infection, site not specified; G91.1 Obstructive hydrocephalus; F02.81 Dementia in other diseases classified elsewhere, unspecified severity, with behavioral disturbance; R78.81 Bacteremia; E86.0 Dehydration; G30.9 Alzheimer's disease, unspecified; R50.9 Fever, unspecified; B96.20 Unspecified Escherichia coli [E. coli] as the cause of diseases classified elsewhere; E11.9 Type 2 diabetes mellitus without complications; I51.7 Cardiomegaly; I10 Essential (primary) hypertension; J44.9 Chronic obstructive pulmonary disease, unspecified; E78.5 Hyperlipidemia, unspecified; I25.10 Atherosclerotic heart disease of native coronary artery without angina pectoris; M19.90 Unspecified osteoarthritis, unspecified site; K21.9 Gastro-esophageal reflux disease without esophagitis; E87.6 Hypokalemia; G25.81 Restless legs syndrome; Z98.2 Presence of cerebrospinal fluid drainage device; Z79.4 Long term (current) use of insulin; Z95.1 Presence of aortocoronary bypass graft; Z79.899 Other long term (current) drug therapy
CPT/HCPCS: 36415; 80053; 81001; 82550; 82553; 82803; 82962; 83605; 84145; 84484; 85007; 85025; 87040; 87070; 87081; 87086; 87186; 93005; 93010; 96365; 99284

== ENCOUNTER 2017-04-02 15:35 | Outpatient (CLI) | payer OTHER | END 2017-04-02 15:52 | disposition home or self-care (01) | LOC: AMBL 15:35 | DX: R41.82 Altered mental status, unspecified (principal) ==

== ENCOUNTER 2018-02-27 21:20 | Outpatient (CLI) | payer OTHER | END 2018-02-27 21:40 | disposition short-term general hospital (02) | LOC: AMBL 21:20 | PROVIDERS: ATTEND Family Medicine | DX: T85.890A Other specified complication of nervous system prosthetic devices, implants and grafts, initial encounter (principal); R41.82 Altered mental status, unspecified; R53.1 Weakness; Z87.820 Personal history of traumatic brain injury ==

== ENCOUNTER 2018-03-29 07:15 | Emergency (ER) ==
[2018-03-29 07:27] VITALS: BP 144/68; BMI 33.6
[2018-03-29 08:51] VITALS: TEMP 101.4
--- NOTE | 2018-03-29 08:55 | CT ---
EXAM: CT scan of the head without contrast HISTORY: Altered mental status TECHNIQUE: Helical imaging of the head was performed without contrast. 5 mm thin axial images and c oronal and sagittal images were provided for interpretation. Comparison CT scan of the head dated 03/26/2017. FINDINGS: There is stable dilatation of the lateral ventricles and temporal horns and dilatation of the third ventricle. There is stable appearance of a right transfrontal ventriculostomy catheter see n with the tip in the anterior left lateral ventricle. Low density changes are again seen within the supratentorial white matter. No acute hemorrhages are seen. There is no mass effect. The basal ci sterns are patent. The paranasal sinuses and mastoid air cells are clear. The calvarium appears norm al. IMPRESSION: Stable ventriculomegaly. Stable appearance of the right transfrontal ventriculostomy catheter. Chronic small vessel ischemic changes seen within the supratentorial white matter. No acute intracranial abnormalities are seen.
--- NOTE | 2018-03-29 08:58 | CT ---
Exam: CT scan of the thorax without contrast. Date: 03/29/2018. Comparison: 03/26/2017. HISTORY: Fever and altered mental status. TECHNIQUE: Helical scan of the thorax was performed without contrast. FINDINGS: Motion blur obscures the upper thorax. There are subcentimeter mediastinal lymph nodes. The caliber of the thoracic aorta is normal. There is left atrial and left ventricular enlargement. Changes of a sternotomy are present. Degenerative changes are present in the thoracic spine. No vis ibly displaced fractures are observed. Evaluation at lung window settings is hampered by motion artifact. However no large area of consolid ation or pleural fluid is present. Tracheobronchial tree is patent. Impression: No acute intrathoracic findings, given limited image detail as a consequence of poor geovanna ath holding. Left atrial left ventricular enlargement, post sternotomy.
--- NOTE | 2018-03-29 09:04 | CT ---
EXAM: CT scan of the abdomen and pelvis without contrast HISTORY: Pain TECHNIQUE: Helical imaging of the abdomen pelvis was performed without contrast. 3 mm thin axial im ages and coronal and sagittal reconstructions were provided for interpretation. Comparison CT scan of the abdomen and pelvis dated 03/26/2017. FINDINGS: Diffuse low density changes are seen throughout the parenchyma of the liver. The spleen, p ancreas, adrenal glands and kidneys appear normal. The proximal ureters are normal size. The small and large bowel loops are normal caliber. There is a nonobstructing calculus seen within the inferior pole of the left kidney. There is no free air. There is a normal appearance of the appendix. The helical images obtained through the pelvis demonstrate a normal appearance of the rectum, urinary bladder. Scattered diverticula are seen within the sigmoid colon without acute inflammation. There is no free fluid seen within the pelvis. 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 No lytic or blastic lesions are seen within the osseous structures. IMPRESSION: Fatty infiltration of the liver. There is no bowel obstruction or acute inflammatory change seen within the abdomen and pelvis. Diverticular disease of the sigmoid colon without acute inflammation. There is no ureteral obstruction. Nonobstructing nephrolithiasis seen within the left kidney.
--- NOTE | 2018-03-29 09:13 | ED.PDOC ---
General ED Provider: Dr. GABRIELLA CONCEPCION Chief Complaint: Altered Mental Status Stated Complaint: altered Time Seen by Physician: 07:30 (seen with pt's nurse ) Mode of Arrival: Ambulance Information Source: EMT Exam Limitations: No limitations Primary Care Provider: JOE OLIVAS Nursing and Triage Documentation Reviewed and Agree: Yes Does patient meet sepsis criteria?: Yes If yes, has appropriate treatment been initiated?: No System Inflammatory Response Syndrome: Not Applicable Sepsis Protocol: For patient's 13 years and over: Temp is 96.8 and below OR 101 and greater Pulse >90 BPM Resp >20/minute Acutely Altered Mental Status Are patient's symptoms suggestive of a new infection, such as: -Pneumonia -Skin, Soft Tissue -Endocarditis -UTI -Bone, Joint Infection -Implantable Device -Acute Abdominal Infection -Wound Infection -Meningitis -Blood Stream Catheter Infection -Unknown Neurological Complaint Exam - Altered Mental Status Complaint/Exam Current Mental Status: Other Last Known Well: uncertain Onset: Gradual Duration: present Symptoms Are: Still present Timing: Constant Episodes Lasting: Days Initial Severity: Mild Current Severity: Mild Eye Deviation Present: No Character: Reports: Confusion Aggravating: Reports: None Alleviating: Reports: None Associated Signs and Symptoms: Denies: Dizziness, Weakness, Headache, Fever, Illness, Nuchal rigidity, Seizure, Nausea, Vomiting, Recently depressed, Trauma Cardiac Risk Factors: Reports: Hypertension, Diabetes, Elevated lipids CVA Risk Factors: Reports: Diabetes, Hypertension Related Surgical History: Reports: None Carotid Bruit Present: No Glascow Coma Scale (see protocol): 14 Nystagmus Present: No Gag Reflex Present: No Meningeal Signs Positive: No Focal Weakness: Present: None Focal Sensory Loss: Present: None Gait: Unable Signs of Injury: Present: Normal findings Thrombolytics Considered: No Differential Diagnoses: Intracranial Bleed, Metabolic Disorder, Hypoglycemia Review of Systems - Review Of Systems Constitutional: Reports: No symptoms Eyes: Reports: No symptoms Ears, Nose, Mouth, Throat: Reports: No symptoms Respiratory: Reports: No symptoms Cardiac: Reports: No symptoms GI: Reports: No symptoms : Reports: No symptoms Musculoskeletal: Reports: No symptoms Skin: Reports: Rash (perineum) Neurological: Reports: Cognitive dysfunction Endocrine: Reports: No symptoms Hematologic/Lymphatic: Reports: No symptoms All Other Systems: Reviewed and Negative Past Medical History - Past Medical History Previously Healthy: No Endocrine: Reports: DM 2 Cardiovascular: Reports: Hypertension Respiratory: Reports: None Hematological: Reports: None Gastrointestinal: Reports: GERD Genitourinary: Reports: None Neuro/Psych: Reports: None Musculoskeletal: Reports: None Cancer: Reports: Unknown Last Menstrual Period: unknown - Surgical History General Surgical History: Reports: 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), Unknown - Family History Family History: Reports: Unknown - Social History Smoking Status: Never smoker Hx Substance Use: No Alcohol Screening: None Physical Exam - Physical Exam Appearance: Well-appearing, No pain distress, Well-nourished Eyes: [place], EOMI, Conjunctiva clear ENT: Ears normal, Nose normal, Oropharynx normal Respiratory: Airway patent, Breath sounds clear, Breath sounds equal, Respirations nonlabored Cardiovascular: RRR, Pulses normal, No rub, No murmur GI/: Soft, Nontender, No masses, Bowel sounds normal, No Organomegaly Musculoskeletal: Normal strength, ROM intact, No edema, No calf tenderness Skin: Warm, Dry (rash perineum ) Neurological: Sensation intact, Motor intact, Reflexes intact, Cranial nerves intact, Alert, Oriented Psychiatric: Affect appropriate, Mood appropriate Interpretation - Radiology Interpretation Radiology Interpretation By: Radiologist Radiology Results: No acute changes Exam Interpreted: CT Scan - Production Support Analyst Rate: Normal Rhythm: Sinus - EKG Interpretation Rate: Normal Rhythm: Sinus [place]: Left (L.B.B.B) Physician Notification - Case Discussed Physician Notified: PMD Time of Notification: 09:15 (ADMITT) Admit To: Inpatient Critical Care Note - Critical Care Note Total Time (mins): 0 Course - Course Hematology/Chemistry: 03/29/18 08:00 03/29/18 08:00 Orders, Labs, Meds: Lab Review 03/29/18 03/29/18 03/29/18 08:00 08:00 08:00 WBC 17.82 H RBC 4.85 Hgb 13.5 Hct 41.7 MCV 86.0 MCH 27.8 MCHC 32.4 RDW Coeff of Cong 14.0 Plt Count 180 Immature Gran % (Auto) 0.4 Neut % (Auto) 81.4 Lymph % (Auto) 9.6 L Hart % (Auto) 8.2 Eos % (Auto) 0.2 Baso % (Auto) 0.2 Immature Gran # (Auto) 0.1 Neut # (Auto) 14.5 H Lymph # (Auto) 1.7 Hart # (Auto) 1.5 Eos # (Auto) 0.0 Baso # (Auto) 0.0 Sodium 140.6 Potassium 4.80 Chloride 104.3 Carbon Dioxide 25.7 Anion Gap 15.40 BUN 14.9 Creatinine 1.14 Estimated GFR (MDRD) 46.00 BUN/Creatinine Ratio 13.07 Glucose 206.6 H Lactic Acid 1.58 Calcium 9.59 Total Bilirubin 0.73 AST 33.9 ALT 26.8 Alkaline Phosphatase 41.9 L Total Creatine Kinase 139.4 H CK-MB (CK-2) 9.260 H* CK-MB (CK-2) % 6.6400 Troponin I 0.754 H* NT-Pro-B Natriuret Pep 4820.000 H Total Protein 7.62 Albumin 4.58 Globulin 3.04 Albumin/Globulin Ratio 1.50 Procalcitonin Urine Color Urine Clarity Urine pH Ur Specific [place] Urine Protein Urine Glucose (UA) Urine Ketones Urine Blood Urine Nitrite Urine Bilirubin Urine Urobilinogen Ur Leukocyte Esterase Urine Microscopic WBC Ur Squamous Epith Cells 03/29/18 03/29/18 08:00 08:30 WBC RBC Hgb Hct MCV MCH MCHC RDW Coeff of Cong Plt Count Immature Gran % (Auto) Neut % (Auto) Lymph % (Auto) Hart % (Auto) Eos % (Auto) Baso % (Auto) Immature Gran # (Auto) Neut # (Auto) Lymph # (Auto) Hart # (Auto) Eos # (Auto) Baso # (Auto) Sodium Potassium Chloride Carbon Dioxide Anion Gap BUN Creatinine Estimated GFR (MDRD) BUN/Creatinine Ratio Glucose Lactic Acid Calcium Total Bilirubin AST ALT Alkaline Phosphatase Total Creatine Kinase CK-MB (CK-2) CK-MB (CK-2) % Troponin I NT-Pro-B Natriuret Pep Total Protein Albumin Globulin Albumin/Globulin Ratio Procalcitonin 0.11 Urine Color Yellow Urine Clarity Turbid Urine pH 7.0 Ur Specific [place] 1.025 Urine Protein 3+ Urine Glucose (UA) Negative Urine Ketones Negative Urine Blood 2+ Urine Nitrite Positive Urine Bilirubin Negative Urine Urobilinogen 1.0 Ur Leukocyte Esterase 1+ Urine Microscopic WBC Tntc Ur Squamous Epith Cells Not present Orders Category Date Time Status EKG-(ED ONLY) Stat CARDIO 03/29/18 07:49 Completed BLOOD CULTURE (ED ONLY) Stat LAB 03/29/18 08:00 Received CBC W/ AUTO DIFF Stat LAB 03/29/18 08:00 Completed COMPREHENSIVE METABOLIC PANEL Stat LAB 03/29/18 08:00 Completed CREATINE KINASE Stat LAB 03/29/18 08:00 Completed LACTIC ACID Stat LAB 03/29/18 08:00 Completed NT-PROBNP Stat LAB 03/29/18 08:00 Completed PROCALCITONIN Stat LAB 03/29/18 08:00 Completed TROPONIN I Stat LAB 03/29/18 08:00 Completed URINALYSIS C & S IF INDICATED Stat LAB 03/29/18 08:30 Completed URINE CULTURE Stat LAB 03/29/18 08:[address] ABDOMEN/PELVIS WO CONTRAST Stat RADS 03/29/18 07:[address] CHEST W/O CONTRAST Stat RADS 03/29/18 07:[address] HEAD W/O CONTRAST Stat RADS 03/29/18 07:49 Completed Vital Signs: Temp Pulse Resp BP Pulse Ox 03/29/18 08:50 101.4 F H 100 H 20 03/29/18 07:22 102.5 F H 110 H 18 144/68 H 92 L Departure - Departure Time of Disposition: 09:15 Disposition: ADMITTED INPATIENT Discharge Problem: Altered mental status Altered mental state Qualifiers: Altered mental status type: unspecified Qualified Code(s): R41.82 - Altered mental status, unspecified Instructions: Altered Mental Status (ED) Condition: Good Pt referred to PMD for follow-up: Yes IPMP verified?: No Additional Instructions: Please call your Family Physician as soon as possible to schedule a follow-up appointment. Allergies/Adverse Reactions: Allergies Penicillins Adverse Reaction (Verified 03/26/17 11:20) Home Medications: Ambulatory Orders Acetaminophen 650 mg PO Q4H PRN 10/29/14 Aspirin [Aspirin Chewable] 81 mg PO DAILYWM 10/29/14 Cetirizine HCl [Zyrtec] 10 mg PO DAILY 10/29/14 Gabapentin [Neurontin] 300 mg PO BID 10/29/14 Hydrocodone/Acetaminophen [Hydrocodone-Acetamin 5-325 mg] 1 each PO TID Insulin Aspart [Novolog Insulin] 0 unit SUBCUT BID 10/29/14 Insulin Glargine,Hum.rec.anlog [Lantus] 42 unit SUBCUT BEDTIME 10/29/14 Isosorbide Mononitrate [Imdur] 30 mg PO DAILY 10/29/14 [place]-3 Fatty Acids/Fish Oil [Fish Oil 1,000 mg Softgel] 1 each PO TID 10/29/14 Omeprazole [Prilosec] 20 mg PO QDAC 10/29/14 Pentoxifylline [Trental] 400 mg PO BID 10/29/14 Ropinirole HCl [Requip] 1 mg PO BEDTIME 10/29/14 Metformin HCl [Metformin HCl ER] 500 mg PO BID 08/08/15 Atorvastatin Calcium [Lipitor] 40 mg PO BEDTIME 10/13/15 Magnesium Hydroxide [Milk of Magnesia] 30 ml PO DAILY PRN 05/21/16 Fenofibrate [Triglide] 160 mg PO DAILY 03/26/17 Ipratropium/Albuterol Neb [Duoneb] 1 vial NEB RTQ6H PRN 03/26/17 Sennosides/Docusate Sodium [Senna S Tablet] 1 each PO BID 03/26/17 Amlodipine Besylate [Norvasc] 5 mg PO BEDTIME #30 tablet 04/02/17 Cefuroxime Axetil [Cefuroxime] 250 mg PO BID #10 tablet 04/02/17 Lisinopril [Zestril] 40 mg PO BID #60 tablet 04/02/17 Disposition Discussed With: Patient, Family
[2018-03-29] MEDS ORDERED: SOLU-MEDROL 125 MG IVP STA (09:16)
[2018-03-29] MEDS ORDERED: LOTRISONE 45 GM TP STA (09:19)
[2018-03-29] MEDS ORDERED: DIFLUCAN PO STA (09:19)
[2018-03-29] MEDS ORDERED: DUONEB NEB PRN (09:20)
[2018-03-29] MEDS ORDERED: TYLENOL PO PRN (09:20)
[2018-03-29] MEDS ORDERED: ROCEPHIN ONE (09:23)
[2018-03-29] MEDS ORDERED: HUMULIN R SUBCUT PRN (09:24)
[2018-03-29] MEDS ORDERED: ROCEPHIN 1 GM in SODIUM CHLORIDE 50 ML IV SCH (09:30)
[2018-03-29] MEDS ORDERED: SODIUM CHLORIDE 1,000 ML IV SCH (09:30)
[2018-03-29] MEDS ORDERED: DUONEB NEB SCH (12:00)
[2018-03-29] MEDS ORDERED: NON-FORMULARY MEDICATION (Atorvastatin Calcium [Lipitor] 40 MG) PO SCH (21:00)
[2018-03-29] MEDS ORDERED: COLACE PO SCH (21:00)
[2018-03-29] MEDS ORDERED: LIPITOR PO SCH (21:00)
[2018-03-29] MEDS ORDERED: NORVASC PO SCH (21:00)
[2018-03-29] MEDS ORDERED: SOLU-MEDROL 40 MG IVP SCH (21:00)
[2018-03-29] MEDS ORDERED: NON-FORMULARY MEDICATION (Sennosides/Docusate Sodium [Senna-S Tablet] 1 EACH) PO SCH (21:00)
[2018-03-29] MEDS ORDERED: SENNA PO SCH (21:00)
[2018-03-29] MEDS ORDERED: ZESTRIL PO SCH (21:00)
[2018-03-29] MEDS ORDERED: TRENTAL PO SCH (21:00)
[2018-03-29] MEDS ORDERED: NEURONTIN PO SCH (21:00)
[2018-03-30] MEDS ORDERED: ASPIRIN CHEWABLE PO SCH (08:00)
[2018-03-30] MEDS ORDERED: IMDUR PO SCH (09:00)
[2018-03-30] MEDS ORDERED: TRIGLIDE PO SCH (09:00)
== END 2018-03-29 11:55 | disposition expired ==
LOC: ED 07:15 → UNDOADMIN 09:19 → MEDSURG B 09:19 → ED 11:55
DX: R41.82 Altered mental status, unspecified (principal); R50.9 Fever, unspecified
CPT/HCPCS: 36415; 80053; 81001; 82550; 82553; 83605; 83880; 84145; 84484; 85025; 87040; 87070; 87086; 87186; 93005; 93010; 96365; 99284